=== PATIENT | male | born 1985 | race African-American/Black ===

== ENCOUNTER 2025-03-03 12:12 | Inpatient (IN) | payer OTHER, MEDICAID ==
[~2025-03-03] VITALS: Ht 167.6 cm; Wt 84.0 kg
[2025-03-03] MEDS: NOREPINEPHRINE 8 MG/250ML KIT 250 ML IV SCH (07:00)
--- NOTE | 2025-03-03 12:37 | ED.PDOC ---
Altered Mental Status HPI Comments 39 year old male presents to the ED with a chief complaint of ALOC onset today (03/03/25). Patient states he woke up today experiencing tremors, worse than usual. Patient drinks ETOH daily, last drink was 4 days ago. Sister states patient has been experiencing hallucinations the past 2 days. Denies chest pain, shortness of breath, nausea, vomiting, diarrhea,headache, dizziness. No other symptoms or modifying factors present at this time. Chief Complaint: Withdrawal Time Seen by MD: 12:30 Reviewed Notes: Medications, Allergies Information Source: Patient, Relative Mode of Arrival: Ambulatory Severity: Moderate Timing: Hours Duration: Since onset Prehospital treatment: None Quality: Change in Behavior Recent: Other History of: None Past Medical History PAST MEDICAL HISTORY: Denies Surgical History: Denies all surgeries Family History Family History: Reviewed,noncontributory to illness, No family hx of Cancer, No family hx of DM, No family hx of Heart alva, No family hx of HTN, No family hx ofKidney alva, No family hx of Liver alva, No family hx of Lung alva, No family hx of Stroke Social History Smoker: Non-Smoker Alcohol: Heavy Drugs: Denies Drug Use Lives In: Home Constitutional: reports: sweats; denies: chills, diaphoresis, fatigue, fever, malaise, weakness, others EENTM: denies: blurred vision, double vision, ear bleeding, ear discharge, ear drainage, ear pain, ear ringing, eye pain, eye redness, hearing loss, mouth pain, mouth swelling, nasal discharge, nose bleeding, nose congestion, nose pain, photophobia, tearing, throat pain, throat swelling, voice changes, others Respiratory: denies: cough, hemoptysis, orthopnea, SOB at rest, shortness of breath, SOB with excertion, stridor, wheezing, others Cardiovascular: denies: chest pain, dizzy spells, diaphoresis, Dyspnea on exertion, edema, irregular heart beat, left arm pain, lightheadedness, palpitations, PND, syncope, others Gastrointestinal: denies: abdomen distended, abdominal pain, blood streaked bowels, constipated, diarrhea, dysphagia, difficulty swallowing, hematemesis, melena, nausea, poor appetite, poor fluid intake, rectal bleeding, rectal pain, vomiting, others Genitourinary: denies: burning, dysuria, flank pain, frequency, hematuria, incontinence, penile discharge, penile sore, pain, testicle pain, testicle swelling, urgency, others Neurological: reports: tremors; denies: dizziness, fainting, headache, left sided numbness, left sided weakness, numbness, paresthesia, pre-existing deficit, right sided numbness, right sided weakness, seizure, speech problems, tingling, weakness, others Musculoskeletal: denies: back pain, gout, joint pain, joint swelling, muscle pain, muscle stiffness, neck pain, others Integumetry: denies: bruises, change in color, change in hair/nails, dryness, laceration, lesions, lumps, rash, wounds, others Allergic/Immunocompromised: denies: Difficulty Healing, Frequent Infections, Hives, Itching, others Hematologic/Lymphatic: denies: anemia, blood clots, easy bleeding, easy bruising, swollen glands, others Endocrine: denies: excessive hunger, excessive sweating, excessive thirst, excessive urination, flushing, intolerance to cold, intolerance to heat, unexplained weight gain, unexplained weight loss, others Psychiatric: reports: others (hallucinations); denies: anxiety, bipolar disorder, depression, hopeless, panic disorder, schizophrenia, sleepless, suicidal All Other Systems: Reviewed and Negative Physical Exam General Appearance: Moderate Distress HEENT: Normal ENT Inspection, Pharynx Normal, TMs Normal Neck: Full Range of Motion, Non-Tender, Normal, Normal Inspection Respiratory: Chest Non-Tender, Lungs Clear, No Accessory Muscle Use, No Respiratory Distress, Normal Breath Sounds Cardiovascular: No Edema, No JVD, No Murmur, No Gallop, Normal Peripheral Pulses, Regular Rate/Rhythm Breast Exam: Deferred Gastrointestinal: No Organomegaly, Non Tender, No Pulsatile Mass, Normal Bowel Sounds, Soft Genitalia: Deferred Pelvic: Deferred Rectal: Deferred Extremities: No calf tenderness, Normal capillary refill, Normal inspection, Normal range of motion, Non-tender, No pedal edema Musculoskeletal : Apperance: Normal Neurologic: Disoriented, Speech Problem, Other Cerebellar Function: Tremor, Ataxia Reflexes: Normal Skin: Dry, Normal Color, Warm Lymphatic: No Adenopathy Was a procedure done? Was a procedure done?: Yes Sedation Sedation?: No Sedation total time: Central Line Recorder of insertion practice: Associate Financial Planner Occupation of co founder and cto: Attending Physician Indication: Hypotension Room prepared for procedure: Yes Associate Financial Planner performed hand hygien: Yes Maximal sterile barrier precau: Mask/Eye shield, Sterile gown, Cap, Sterlie gloves, Large sterlie drape Skin Preparation: Chlorhexidine gluconate, Providine iodine, Alcohol Skin preparation completely dr: Yes Insertion site: Right, Femoral Central line catheter type: [id number] dialysis Number of lumens: 3 Post Assessment: Chest X-Ray, Proper placement Informed consent obtained: Yes Risks/benefits/alt described: Yes Intubation Indication: Altered Mental Status, Airway Protection Prep: Preoxygenation Pretreated with: Sedation Medicated with: Other (versed 20 mg, Rocuronium 100 mg) Intubation Approach: Orotracheal Intubation size: cm (24) Informed consent obtained: Yes Risks/benefits/alt described: Yes Differential Diagnosis (ALOC) Differential Diagnosis: Encephalopathy, Closed Head Injury, CVA, Other (Alcohol withdrawal) X-Ray, Labs, Meds, VS Vital Signs Date Time Temp Pulse Resp B/P (MAP) Pulse Ox O2 Delivery O2 Flow Rate FiO2 03/03/25 16:30 98 18 117/73 (88) 99 03/03/25 16:24 98 18 104/65 (78) 99 30 03/03/25 16:15 98 18 112/72 (85) 99 03/03/25 16:00 105 18 104/65 (78) 98 03/03/25 15:45 105 18 103/55 (71) 98 03/03/25 15:36 98.2 130 20 140/101 100 50 98.2 03/03/25 15:30 128 19 113/76 (88) 98 03/03/25 15:28 121 18 188/148 (161) 100 50 03/03/25 15:15 111 19 129/62 (84) 100 03/03/25 15:00 125 22 188/148 (161) 99 03/03/25 14:00 130 20 140/101 (114) 100 03/03/25 12:52 Room Air* 0 21 03/03/25 12:51 98.2 129 19 172/96 (121) 100 98.2 03/03/25 12:31 98.2 142 20 100 98.2 Lab Test 03/03/25 16:04 03/03/25 16:00 03/03/25 12:37 03/03/25 12:26 Range/Units Blood Gas Specimen Type Arterial Blood Gas Sample Site Right radial Blood Gas Patient Temperature 37.0 Arterial Blood Date Drawn [id number] Arterial Blood pH 7.410 7.350-7.450 Arterial Blood Partial Pressure CO2 33.0 L 35.0-48.0 mmHg Arterial Blood Partial Pressure O2 172.0 H 83.0-108.0 mmHg Arterial Blood HCO3 20.4 L 21.0-28.0 mmol/L Arterial Blood Oxygen Saturation 99.2 H 94.0-98.0 % Arterial Blood Base Excess -3.3 L -2.0-3.0 mmol/L Arterial Blood Oxyhemoglobin 97.7 94.0-98.0 % Arterial Blood Carboxyhemoglobin 0.8 0.5-1.5 % Arterial Blood Methemoglobin 0.7 0.0-1.5 % Matt Test Modified Blood Gas Total Hemoglobin 14.00 13.5-17.5 g/dL Blood Gas Set Respiration Rate 18.0 Blood Gas Modality Vent - ac FiO2 % 50.0 Blood Gas Tidal Volume 500.0 Blood Gas PEEP or CPAP 5.0 Urine Color Light-orange Yellow Urine Clarity Clear Clear Urine pH 6.0 5.0-9.0 Urine Specific Gunter 1.033 1.001-1.035 Urine Protein 1+ H Negative Urine Ketones 2+ H Negative Urine Blood Trace H Negative /uL Urine Nitrite Negative Negative Urine Bilirubin 1+ Negative Urine Urobilinogen 4 H Negative mg/dL Urine Leukocyte Esterase Negative Negative /uL Urine RBC 1 0 - 3 /hpf Urine Microscopic WBC 1 0-3 /HPF Urine Squamous Epithelial Cells None seen <5 /hpf Urine Bacteria None seen None Seen /hpf Urine Hyaline Casts Few 0 - 2 /lpf Urine Mucus Few None Seen Urine Glucose Normal Normal mg/dL White Blood Count 12.7 H 4.4-10.8 10^3/uL Red Blood Count 4.93 4.5-5.90 10^6/uL Hemoglobin 16.2 13.5-17.5 g/dL Hematocrit 46.5 41.0-53.0 % Mean Corpuscular Volume 94.4 80.0-100.0 fL Mean Corpuscular Hemoglobin 32.8 H 28.0-32.0 pg Mean Corpuscular Hemoglobin Concent 34.7 32.0-36.0 g/dL Red Cell Distribution Width 12.8 11.8-14.3 % Platelet Count 207 140-450 10^3/uL Mean Platelet Volume 7.8 6.9-10.8 fL Neutrophils (%) (Auto) 58.6 37.0-80.0 % Lymphocytes (%) (Auto) 23.5 10.0-50.0 % Monocytes (%) (Auto) 16.1 H 0.0-12.0 % Eosinophils (%) (Auto) 0.8 0.0-7.0 % Basophils (%) (Auto) 1.0 0.0-2.0 % Neutrophils # (Auto) 7.4 1.6-8.6 10 ^3/uL Lymphocytes # (Auto) 3.0 0.4-5.4 10 ^3/uL Monocytes # (Auto) 2.0 H 0-1.3 10 ^3/uL Eosinophils # (Auto) 0.1 0-0.8 10 ^3/uL Basophils # (Auto) 0.1 0-0.2 10 ^3/uL Nucleated Red Blood Cells 1.1 % Sodium Level 136 136-145 mmol/L Potassium Level 4.1 3.5-5.1 mmol/L Chloride Level 95 L 98-107 mmol/L Carbon Dioxide Level 26 20-31 mmol/L Anion Gap 15 5-15 Blood Urea Nitrogen 11 9-23 mg/dL Creatinine 1.25 0.700-1.30 mg/dL Glomerular Filtration Rate Calc 76 >90 mL/min BUN/Creatinine Ratio 8.8 L 10.0-20.0 Serum Glucose 121 H 74-106 mg/dL Calcium Level 10.7 H 8.7-10.4 mg/dL Total Bilirubin 1.5 H 0.2-1.0 mg/dL Aspartate Amino Transferase (AST) 87 H 13-40 U/L Alanine Aminotransferase (ALT) 63 H 7-40 U/L Alkaline Phosphatase 53 46-116 U/L Troponin I High Sensitivity 13 </=54 ng/L Total Protein 8.7 H 5.7-8.2 g/dL Albumin 5.6 H 3.2-4.8 g/dL Plasma/Serum Blood Alcohol < 3.0 <10 mg/dL POC Glucose 124 H 70-106 mg/dl Current Medications Medications (Trade) Dose Ordered Sig/Sherman Route Start Time Stop Time Status Last Admin Sodium Chloride 1,000 ml @ 1,000 mls/hr Q1H ONCE IV 03/03/25 12:45 03/03/25 13:44 DC 03/03/25 12:44 Famotidine (Pepcid Injection) 20 mg ONCE ONCE IV 03/03/25 12:45 03/03/25 12:46 DC 03/03/25 12:44 Lorazepam (Ativan Inj) 2 mg ONCE ONCE IV 03/03/25 12:45 03/03/25 12:46 DC 03/03/25 12:44 Chlordiazepoxide HCl (Librium Capsule) 50 mg ONCE ONCE PO 03/03/25 12:45 03/03/25 12:46 DC 03/03/25 12:44 Folic Acid 1 mg/ Dextrose 50.2 ml @ 200.8 mls/ hr ONCE ONCE INJ 03/03/25 12:45 03/03/25 12:59 DC 03/03/25 13:22 Thiamine HCl 100 mg ONCE ONCE IV 03/03/25 12:45 03/03/25 12:46 DC 03/03/25 12:44 Lorazepam (Ativan Inj) 2 mg ONCE ONCE IV 03/03/25 14:45 03/03/25 14:46 DC 03/03/25 14:37 Time of 1ST Reevaluation: 13:00 Reevaluation 1ST: Unchanged Patient Education/Counseling: Diagnosis, Treatment, Prognosis Family Education/Counseling: Diagnosis, Treatment, Prognosis Additional Information The following tests were ordered, and results were reviewed by me: CBC, CMP, BLOOD ALCOHOL, TROP, UA, Additional Information was gathered from interviewing the following independent historians: sister I discussed treatment and results with medical personnel and: patient, sister Comprehensive systems review obtained and negative except for what is stated in the HPI. Departure 1 Departure Time of Disposition: 17:34 (Patient presented with a acute alcohol withdrawal. The patient when severe withdrawal not tolerating secretions. Patient was intubated started on propofol drip. We will admit patient to ICU for further workup) Impression: Primary Impression: ALCOHOL ABUSE WITH WITHDRAWAL DELIRIUM Disposition: ADMITTED INPATIENT Admit to: ICU Condition: Critical Critical Care Note Critical Care Time?: Yes Critical care comment: Severe alcohol withdrawal Authorized and Performed by: Camilla Gonzalez MD Total critical care time: Approximately 118 minutes Due to a high probability of clinically significant, life threatening deterioration, the patient required my highest level of preparedness to intervene emergently and I personally spent this critical care time directly and personally managing the patient. This critical care time included obtaining a history; examining the patient; pulse oximetry; ordering and review of studies; arranging urgent treatment with development of a management plan; evaluation of patient's response to treatment; frequent reassessment; and, discussions with other providers. This critical care time was performed to assess and manage the high probability of imminent, life-threatening deterioration that could result in multi-organ failure. It was exclusive of separately billable procedures and treating other patients and teaching time. Please see my other sections and the rest of the note for further information on patient assessment and treatment. Stability Stability form required: No I personally scribed for CAMILLA GONZALEZ MD ([email or web address]) on 03/03/25 at 12:37. Electronically submitted by Allison Mackay ([email or web address]). I personally scribed for CAMILLA GONZALEZ MD ([email or web address]) on 03/03/25 at 13:04. Electronically submitted by Allison Mackay ([email or web address]). I personally scribed for CAMILLA GONZALEZ MD ([email or web address]) on 03/03/25 at 13:05. Electronically submitted by Allison Mackay ([email or web address]). I personally scribed for CAMILLA GONZALEZ MD ([email or web address]) on 03/03/25 at 15:49. Electronically submitted by Allison Mackay ([email or web address]). CAMILLA GONZALEZ MD March 03, 2025 12:37
[2025-03-03] MEDS: LORazepam 2MG/ML-1ML VIAL IV ONE ×3 (12:44→18:00)
[2025-03-03] MEDS: FAMOTIDINE (10MG/ML) 2ML VL IV ONE (12:44)
[2025-03-03] MEDS: SODIUM CHLORIDE 0.9% 1,000 ML IV ONE (12:44)
[2025-03-03] MEDS: chlordiazePOXIDE HCL 25 MG CAP PO ONE (12:44)
[2025-03-03] MEDS: THIAMINE 100mg/ml INJ (200mg/2ml VIAL) IV ONE (12:44)
[2025-03-03 12:52] LABS: Basophils # (auto) 0.1 10 ^3/uL (0-0.2); Eosinophils # (auto) 0.1 10 ^3/uL (0-0.8); Eosinophils % (auto) 0.8 % (0.0-7.0); Hematocrit 46.5 % (41.0-53.0); Hemoglobin 16.2 g/dL (13.5-17.5); Lymphocytes % (auto) 23.5 % (10.0-50.0); Mean Corpuscular Hemoglobin 32.8 pg (28.0-32.0); Mean Corpuscular Hgb Conc. 34.7 g/dL (32.0-36.0); Mean Corpuscular Volume 94.4 fL (80.0-100.0); Monocytes % (auto) 16.1 % (0.0-12.0); Neutrophils # (auto) 7.4 10 ^3/uL (1.6-8.6); Neutrophils % (auto) 58.6 % (37.0-80.0); Nucleated Red Blood Cells % 1.1 %; Platelet Count (auto) 207 10^3/uL (140-450); Red Blood Cells 4.93 10^6/uL (4.5-5.90); Red Cell Distribution Width 12.8 % (11.8-14.3); White Blood Cell 12.7 10^3/uL (4.4-10.8)
[2025-03-03 13:12] LABS: Alkaline Phosphatase 53 U/L (46-116); Carbon Dioxide 26 mmol/L (20-31); Potassium 4.1 mmol/L (3.5-5.1)
[2025-03-03 13:13] LABS: Anion Gap 15 (5-15); BUN/Creatinine Ratio 8.8 (10.0-20.0); Blood Urea Nitrogen 11 mg/dL (9-23)
[2025-03-03 13:14] LABS: Alanine Aminotransferase 63 U/L (7-40); Albumin 5.6 g/dL (3.2-4.8); Aspartate Aminotransferase 87 U/L (13-40); Bilirubin, Total 1.5 mg/dL (0.2-1.0); Calcium 10.7 mg/dL (8.7-10.4); Chloride 95 mmol/L (98-107); Glucose 121 mg/dL (74-106); Sodium 136 mmol/L (136-145); Total Protein 8.7 g/dL (5.7-8.2)
[2025-03-03] MEDS: FOLIC ACID 1 MG in D5W 5% 50 ML INJ ONE (13:22)
[2025-03-03 13:34] LABS: Blood Alcohol < 3.0 mg/dL (<10)
[2025-03-03] MEDS: LORazepam 2MG/ML-1ML VIAL ONE (14:37)
[2025-03-03] MEDS: MIDAZOLAM HCL 5 MG/ML-1ML VIAL ONE ×2 (14:51→15:33)
[2025-03-03] MEDS: PROPOFOL 100 ML IV SCH (15:00)
[2025-03-03] MEDS: MIDAZOLAM DRIP 50 mg/50mL 50 ML IV SCH (15:00)
[2025-03-03] MEDS: MIDAZOLAM DRIP 50 mg/50mL 50 ML IV ONE (15:33)
[2025-03-03] MEDS: PROPOFOL 100 ML IV ONE ×2 (15:33→18:15)
[2025-03-03] MEDS: ROCURONIUM 10MG/ML 10ML VIAL IV ONE (15:34)
[2025-03-03 15:36] VITALS: BP 140/101; PULSE 130; RESP 20; TEMP 98.2; O2SAT 100
[2025-03-03 16:04] LABS: Urine Bacteria None Seen /hpf (None Seen)
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
[2025-03-03 16:13] LABS: Base Excess -3.3 mmol/L (-2.0-3.0)
[2025-03-03 16:16] LABS: Urine Blood TRACE /uL (Negative); Urine Clarity Clear (Clear); Urine Color Light-Orange (Yellow); Urine Hyaline Cast FEW /lpf (0 - 2); Urine Mucus FEW (None Seen); Urine Protein, UAD 1+ (Negative); Urine Specific Gravity 1.033 (1.001-1.035); Urine Squamous Epithelial Cell None Seen /hpf (<5); Urine Urobilinogen 4 mg/dL (Negative); Urine WBC 1 /HPF (0-3)
[2025-03-03 16:24] VITALS: BP 104/65; PULSE 98; RESP 18; O2SAT 99
[2025-03-03] MEDS ORDERED: PROPOFOL 100 ML IV SCH (17:00)
[2025-03-03] MEDS ORDERED: MORPHINE SULFATE INJ 2 MG/ml SYRG IV PRN (17:00)
[2025-03-03] MEDS ORDERED: NITROGLYCERIN 0.4 MG SL TAB SL PRN (17:00)
[2025-03-03] MEDS ORDERED: MIDAZOLAM DRIP 50 mg/50mL 50 ML IV SCH (17:00)
[2025-03-03] MEDS ORDERED: ONDANSETRON HCL 4 MG/2 ML VIAL IV PRN (17:00)
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
[2025-03-03 18:14] VITALS: PULSE 107; RESP 25; O2SAT 97
[2025-03-03 20:10] VITALS: BP 102/64; PULSE 100; RESP 23; O2SAT 99
[2025-03-03] MEDS: fentaNYL Drip 2500mCg/250mlNS 250 ML IV SCH (20:15)
[2025-03-03 20:16] VITALS: PULSE 50; O2SAT 100
[2025-03-03] MEDS: FOLIC ACID 1 MG, MULTIPLE VITAMIN 10 ML, MAGNESIUM SULF SDV 50% 8 MEQ, THIAMINE INJ 100... INJ SCH (21:21)
[2025-03-03 22:04] VITALS: BP 97/57; PULSE 92; RESP 18; O2SAT 98
[2025-03-04] VITALS (94 sets, daily range): BP systolic 82–151; BP diastolic 51–95; PULSE 64–98; RESP 15–23; TEMP 96.6–100.6; O2SAT 97–100
[2025-03-04] MEDS: chlordiazePOXIDE HCL 25 MG CAP PO SCH (02:40)
--- NOTE | 2025-03-04 07:24 | DVH ---
EXAM: XR Chest, 1 View CLINICAL INDICATION: Intubated TECHNIQUE: Frontal view of the chest. COMPARISON: XY CHEST PORTABLE on DOS: 03/03/25 FINDINGS: LUNGS AND PLEURAL SPACES: Unremarkable. No consolidation. No pneumothorax. HEART: Unremarkable. No cardiomegaly. MEDIASTINUM: Unremarkable. Normal mediastinal contour. BONES/JOINTS: Unremarkable. No acute fracture. TUBES, LINES AND DEVICES: The endotracheal tube (ETT) is in satisfactory position. Enteric tube ti p in the stomach. OTHER FINDINGS: . . IMPRESSION: No acute cardiopulmonary process.
[2025-03-04 07:27] LABS: Basophils # (auto) 0.1 10 ^3/uL (0-0.2); Basophils % (auto) 0.8 % (0.0-2.0); Eosinophils # (auto) 0.1 10 ^3/uL (0-0.8); Eosinophils % (auto) 1.3 % (0.0-7.0); Hematocrit 38.2 % (41.0-53.0); Hemoglobin 13.4 g/dL (13.5-17.5); Lymphocytes # (auto) 0.8 10 ^3/uL (0.4-5.4); Lymphocytes % (auto) 10.2 % (10.0-50.0); Mean Corpuscular Hemoglobin 32.9 pg (28.0-32.0); Mean Corpuscular Hgb Conc. 35.1 g/dL (32.0-36.0); Monocytes # (auto) 0.9 10 ^3/uL (0-1.3); Monocytes % (auto) 11.7 % (0.0-12.0); Neutrophils # (auto) 5.7 10 ^3/uL (1.6-8.6); Platelet Count (auto) 163 10^3/uL (140-450); Red Blood Cells 4.06 10^6/uL (4.5-5.90); Red Cell Distribution Width 13.1 % (11.8-14.3); White Blood Cell 7.5 10^3/uL (4.4-10.8)
[2025-03-04 07:41] LABS: Albumin 4.3 g/dL (3.2-4.8); Anion Gap 11 (5-15); BUN/Creatinine Ratio 7.2 (10.0-20.0); Calcium 9.6 mg/dL (8.7-10.4); Carbon Dioxide 26 mmol/L (20-31); Chloride 100 mmol/L (98-107); Glucose 102 mg/dL (74-106); Sodium 137 mmol/L (136-145); Total Protein 6.8 g/dL (5.7-8.2)
[2025-03-04 07:42] LABS: Alanine Aminotransferase 44 U/L (7-40); Alkaline Phosphatase 40 U/L (46-116); Aspartate Aminotransferase 44 U/L (13-40); Bilirubin, Total 1.1 mg/dL (0.2-1.0); Blood Urea Nitrogen 6 mg/dL (9-23); Potassium 2.7 mmol/L (3.5-5.1)
[2025-03-04 07:47] LABS: Base Excess -0.6 mmol/L (-2.0-3.0)
[2025-03-04 09:25] LABS: Magnesium 2.3 mg/dL (1.6-2.6)
[2025-03-04] MEDS ORDERED: chlordiazePOXIDE HCL 25 MG CAP PO SCH (10:00)
[2025-03-04] MEDS: PANTOPRAZOLE 40 MG/10 ML VIAL INJ IV SCH (10:12)
[2025-03-04] MEDS: POTASSIUM CHL 20MEQ/100ML 100 ML IV SCH ×2 (10:12→14:18)
[2025-03-04] MEDS: ENOXAPARIN SOD 40 MG/0.4 ML SYRINGE SC SCH (10:15)
[2025-03-04] MEDS: LORazepam 2MG/ML-1ML VIAL IV PRN (10:24)
[2025-03-04] MEDS: LORazepam 2MG/ML-1ML VIAL ONE (10:28)
[2025-03-04] MEDS: LORazepam 2MG/ML-1ML VIAL IV ONE (10:30)
[2025-03-04 11:34] LABS: Folate (Folic Acid) 23.84 ng/mL (>5.38)
[2025-03-04] MEDS: ACETAMINOPHEN 500 MG TAB or CAP PO PRN (12:18)
[2025-03-04] MEDS: LACTATED RINGER'S 1,000 ML IV ONE (14:58)
[2025-03-04] MEDS: SODIUM CHLORIDE 0.9% 1,000 ML IV SCH (15:55)
[2025-03-04] MEDS: Jevity 1.2 Cal/Fiber 1 Liter GT SCH (16:04)
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
--- NOTE | 2025-03-04 22:04 | BSKYNEURO ---
[facility] Note # Demographics Consult Type: General Neurology Patient Location: Inpatient First Name: ANA MARÍA PALMA Last Name: KADEN Date of : 1985 Age: 39 Gender: Male Facility: [facility] Time of Initial Page (Traill Time): 03/04/2025 21:38 Time of Return Call (Traill Time): 03/04/2025 21:38 # HPI History: 39M reportedly with seizures in setting of alcohol withdrawal. Intubated. Ativan does not seem to do much for him to suppress seizures. Shaking whole body during events, duration of events about 7 minutes per RN, some shorter. Versed 15mg/hr, propofol at 50mcg/kg/min, fentanyl sedation ongoing. CT ordered, pending, EEG ordered, pending. # Exam Additional Neurologic Exam: intubated, sedated. Neck supple per RN. No ability for patient to participate in examination. No ongoing seizure-like activity. # Assessment Impression: - Seizure - Altered Mental Status in setting of alcohol withdrawal. # Plan Imaging: (urgency: STAT): - CT Head without contrast Other: - If patient has any neurological deterioration please call me back immediately - I have discussed my recommendations with the referring provider Additional Recommendations: STAT cEEG, if transfer required, would initiate. In meantime continue versed, propofol, would add keppra 60mg/kg IV once up to maximum of 4.5g once, then 1.5g IV BID. Disposition: admit # Logistics Attestation of consult completion: The patient is located at: [facility]. Facility staff participated in the visit. I performed this telemedicine visit from my offsite office utilizing interactive 2 way audio and visual telecommunication technology. Consent: Verbal consent was obtained from the patient and/or family for this encounter. Total time spent in telemedicine encounter: I spent 20 minutes reviewing clinical data and/or imaging, obtaining history, examining the patient, communicating with the onsite care team, and in preparation of this report. # Demographics First Name: ANA MARÍA PALMA Last Name: KADEN Facility: [facility] Yes KRISTIE WALSH MD March 04, 2025 22:04
--- NOTE | 2025-03-04 22:47 | DVH ---
INDICATION: Alcohol abuse, evaluate hepatic structure TECHNIQUE: Multiple real-time sonographic images of the abdomen were obtained. COMPARISON: None FINDINGS: The liver is homogenous in echogenicity. The liver measures 14.4 cm. No intrahepatic bilia ry ductal dilatation is noted. The liver has mild grade 1 hepatic steatosis. The gallbladder wall measures 0.2 cm and is unremarkable. No gallstones or sludge is seen. The commo n duct measures 0.38 cm and is unremarkable. No pericholecystic fluid is noted. The right kidney measures 0.9 cm. No hydronephrosis. The left kidney measures 11.1 cm. No hydroneph rosis. The spleen measures 9.4 cm, within normal limits. The echogenicity is within normal limits. The pancreas is not well visualized due to obscuration from bowel gas. The visualized portions of the IVC and aorta are grossly unremarkable. IMPRESSION: 1. Normal exam of the abdomen.
[2025-03-04] MEDS: levETIRAcetam 1000 mg/100ml 100 ML IV ONE (23:46)
[2025-03-05] VITALS (109 sets, daily range): BP systolic 83–126; BP diastolic 51–88; PULSE 61–78; RESP 12–20; TEMP 97.9–100.4; O2SAT 97–100
[2025-03-05] MEDS ORDERED: levETIRAcetam 1000 mg/100ml 100 ML IV ONE
[2025-03-05] MEDS: levETIRAcetam 1000 mg/100ml 100 ML IV ONE ×3 (00:08→00:45)
[2025-03-05] MEDS: levETIRAcetam 500 mg/100ml 100 ML IV ONE (01:02)
--- NOTE | 2025-03-05 02:40 | DVH ---
EXAM: CT HEAD WITHOUT CONTRAST INDICATION: Seizure TECHNIQUE: CT of the head without intravenous contrast. Radiation Dose Information: CT Dose: CTDI volume is 62.87 mGy. Dose-length product is 1007.58 mGy*cm The dose indicators for CT are the volume Computed Tomography (CT) Dose Index (CTDIvol) and the Dose Length Product (DLP), and are measured in units of mGy and mGy-cm, respectively. These indicators are not patient dose, but values generated from the CT scanner acquisition factors. The report includes radiation exposure data for exposures received during this examination. COMPARISON: None FINDINGS: There is no evidence of acute intracranial hemorrhage, extra-axial collection, mass effect, midline s hift, herniation or hydrocephalus. The ventricles, sulci and cisterns are age appropriate. The temple-white differentiation is intact. The visualized paranasal sinuses and mastoid air cells are clear. The surrounding soft tissues and osseous structures are unremarkable. There is an endotracheal tube. IMPRESSION: 1. No acute intracranial abnormality.
[2025-03-05 03:50] LABS: Basophils # (auto) 0.1 10 ^3/uL (0-0.2); Basophils % (auto) 0.7 % (0.0-2.0); Eosinophils # (auto) 0.2 10 ^3/uL (0-0.8); Eosinophils % (auto) 2.6 % (0.0-7.0); Hematocrit 35.6 % (41.0-53.0); Hemoglobin 12.3 g/dL (13.5-17.5); Lymphocytes % (auto) 13.9 % (10.0-50.0); Mean Corpuscular Hgb Conc. 34.6 g/dL (32.0-36.0); Mean Corpuscular Volume 95.5 fL (80.0-100.0); Monocytes # (auto) 0.9 10 ^3/uL (0-1.3); Monocytes % (auto) 13.2 % (0.0-12.0); Neutrophils # (auto) 4.9 10 ^3/uL (1.6-8.6); Neutrophils % (auto) 69.6 % (37.0-80.0); Platelet Count (auto) 166 10^3/uL (140-450); Red Blood Cells 3.73 10^6/uL (4.5-5.90); Red Cell Distribution Width 12.7 % (11.8-14.3); White Blood Cell 7.1 10^3/uL (4.4-10.8)
[2025-03-05 03:53] LABS: Chloride 105 mmol/L (98-107); Sodium 139 mmol/L (136-145)
[2025-03-05 03:54] LABS: Anion Gap 10 (5-15); Carbon Dioxide 24 mmol/L (20-31)
[2025-03-05 03:57] LABS: Calcium 8.3 mg/dL (8.7-10.4); Potassium 2.9 mmol/L (3.5-5.1)
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
[2025-03-05 04:09] LABS: BUN/Creatinine Ratio 6.6 (10.0-20.0); Blood Urea Nitrogen < 5 mg/dL (9-23); Glucose 123 mg/dL (74-106)
[2025-03-05] MEDS: POTASSIUM CHL 20MEQ/100ML 100 ML IV SCH ×2 (04:22→20:12)
[2025-03-05 07:43] LABS: Base Excess -3.8 mmol/L (-2.0-3.0)
[2025-03-05] MEDS: levETIRAcetam 1500 mg/100ml 100 ML IV SCH (07:56)
[2025-03-05] MEDS ORDERED: chlordiazePOXIDE HCL 25 MG CAP PO SCH (10:00)
[2025-03-05 10:57] LABS: Hepatitis A Ab IgM Negative; Hepatitis B Core IgM Negative (Negative); Hepatitis B Surface Antigen Negative (Negative); Hepatitis C Antibody Negative (Negative)
--- NOTE | 2025-03-05 14:29 | DVHEEG2 ---
Neurology EEG Procedural Note Procedural Note Date of service: March 05, 2025 Diagnosis: Seizure. Patient status: Sedated. Conditions of recording: This is an 18 channel EEG recording following guidelines as per the 10/20 international classification. No activating procedure was performed Technical summary: The entire recording was degraded by abundant electrical and lead artifact, making any sort of interpretation impossible. We suggest that the study be repeated, if possible, to obtain a more optimal study. AUBRIE BLANC MD March 05, 2025 14:29
[2025-03-05] MEDS: SODIUM CHLORIDE 0.9% 1,000 ML IV SCH (17:06)
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
[2025-03-06] VITALS (112 sets, daily range): BP systolic 92–120; BP diastolic 58–80; PULSE 60–90; RESP 15–22; TEMP 97.7–99.7; O2SAT 100
[2025-03-06 04:45] LABS: Alanine Aminotransferase 27 U/L (7-40); Albumin 3.4 g/dL (3.2-4.8); Anion Gap 9 (5-15); Aspartate Aminotransferase 27 U/L (13-40); Bilirubin, Total 0.7 mg/dL (0.2-1.0); Carbon Dioxide 21 mmol/L (20-31); Glucose 105 mg/dL (74-106); Potassium 3.5 mmol/L (3.5-5.1); Sodium 138 mmol/L (136-145)
[2025-03-06 04:59] LABS: Alkaline Phosphatase 41 U/L (46-116); BUN/Creatinine Ratio 7.1 (10.0-20.0); Blood Urea Nitrogen < 5 mg/dL (9-23); Calcium 8.2 mg/dL (8.7-10.4); Chloride 108 mmol/L (98-107); Total Protein 5.6 g/dL (5.7-8.2)
[2025-03-06 05:02] LABS: INR 0.97 (0.9-1.15); Partial Thromboplastin Time 29.4 SEC (24.5-34.5); Prothrombin Time 10.3 sec (9.3-11.8)
[2025-03-06 05:08] LABS: Hematocrit 35.6 % (41.0-53.0); Hemoglobin 12.2 g/dL (13.5-17.5); Mean Corpuscular Hemoglobin 32.7 pg (28.0-32.0); Mean Corpuscular Hgb Conc. 34.4 g/dL (32.0-36.0); Mean Corpuscular Volume 95.2 fL (80.0-100.0); Platelet Count (auto) 185 10^3/uL (140-450); Red Blood Cells 3.73 10^6/uL (4.5-5.90); Red Cell Distribution Width 12.7 % (11.8-14.3)
[2025-03-06 05:14] LABS: Basophils % (manual) 0 (0.0-2.0); Blast Cells 0; Metamyelocytes % 0; Myelocytes % 0; Promyelocytes % 0; Reactive Lymphocytes 0
--- NOTE | 2025-03-06 06:25 | DVH ---
CHEST RADIOGRAPH Indication: Mechanical ventilation Technique: Single frontal view of the chest was obtained Comparison: XY CHEST PORTABLE on DOS: 03/05/25 FINDINGS: Lines and Tubes: Endotracheal tube terminates 3.8 cm above the minna. The enteric tube courses below the left hemidiaphragm and the tip extends outside the field of view. Lungs: Hazy bilateral opacities. Pleura: No effusion. No pneumothorax. Cardiomediastinal contours: Unremarkable Bones: No acute osseous abnormality. IMPRESSION: 1. Endotracheal tube terminates 3.8 cm above the minna. 2. Mild pulmonary edema.
[2025-03-06 06:34] LABS: Band Neutrophils % (manual) 6; Eosinophils % (manual) 5 (0-7); Lymphocytes % (manual) 20 (10.0-50.0); Monocytes % (manual) 8 (0-12); Platelet Estimate Adequate
[2025-03-06] MEDS ORDERED: chlordiazePOXIDE HCL 25 MG CAP PO SCH (07:00)
[2025-03-06 09:10] LABS: Base Excess -3.8 mmol/L (-2.0-3.0)
[2025-03-06] MEDS: LIDOCAINE 1% (LOCAL ANESTH.) PF 5ml SDV ID ONE (12:33)
--- NOTE | 2025-03-06 14:08 | DVHEEG2 ---
Neurology EEG Procedural Note Procedural Note Diagnosis: Seizure. Patient status: Sedated. Conditions of recording: This is an 18 channel EEG recording following guidelines as per the 10/20 international classification. No activating procedure was performed Technical summary: The predominant activity throughout the entirety of the recording appeared to be diffuse low amplitude, low frequency poorly reactive slow symmetrical theta and delta activity,. No definite epileptiform discharges or electrographic seizures were seen. Impression: This is an abnormal EEG recording consistent with the presence of a severe diffuse nonspecific encephalopathic state and/or state of deep sedation. Clinical correlation is suggested. AUBRIE BLANC MD March 06, 2025 14:08
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
[2025-03-06] MEDS: SODIUM CHLOR 0.9% PF (SALINE LOCK) 10ML VIAL/SYR IV SCH (22:00)
[2025-03-07] VITALS (106 sets, daily range): BP systolic 85–131; BP diastolic 48–92; PULSE 63–100; RESP 14–20; TEMP 98.6–100.6; O2SAT 96–100
[2025-03-07 04:00] LABS: Anion Gap 10 (5-15); Carbon Dioxide 22 mmol/L (20-31); Chloride 105 mmol/L (98-107); Sodium 137 mmol/L (136-145)
[2025-03-07 04:02] LABS: Hematocrit 38.2 % (41.0-53.0); Hemoglobin 13.3 g/dL (13.5-17.5); Mean Corpuscular Hemoglobin 33.1 pg (28.0-32.0); Mean Corpuscular Hgb Conc. 34.9 g/dL (32.0-36.0); Mean Corpuscular Volume 94.8 fL (80.0-100.0); Platelet Count (auto) 244 10^3/uL (140-450); Red Blood Cells 4.03 10^6/uL (4.5-5.90); Red Cell Distribution Width 12.8 % (11.8-14.3); White Blood Cell 5.3 10^3/uL (4.4-10.8)
[2025-03-07 04:16] LABS: BUN/Creatinine Ratio 8.8 (10.0-20.0); Blood Urea Nitrogen < 5 mg/dL (9-23); Calcium 8.3 mg/dL (8.7-10.4); Glucose 127 mg/dL (74-106); Potassium 3.2 mmol/L (3.5-5.1)
[2025-03-07 04:46] LABS: Basophils % (manual) 0 (0.0-2.0); Metamyelocytes % 0; Myelocytes % 0; Promyelocytes % 0
[2025-03-07] MEDS: POTASSIUM CHL 20MEQ/100ML 100 ML IV SCH (05:40)
--- NOTE | 2025-03-07 05:55 | DVH ---
Exam: US US GUIDED VASCULAR ACCESS Date: 03/05/2025 01:04 PM Clinical History: PICC LINE PLACEMENT Comparison: None Findings: Targeted sonographic evaluation of the arm vein was obtained utilizing grayscale and color Doppler im aging. IMPRESSION: Sonographic assistance for picc placement. Please refer to procedural report for detailed findings.
--- NOTE | 2025-03-07 05:59 | DVH ---
EXAM: XR Chest, 1 View CLINICAL INDICATION: Mechanical ventilation TECHNIQUE: Frontal view of the chest. COMPARISON: XY CHEST PORTABLE on DOS: 03/06/25, XY CHEST PORTABLE on DOS: 03/05/25, XY CHEST PORTABLE on DOS: 03/04/25, XY CHEST PORTABLE on DOS: 03/03/25 FINDINGS: LUNGS AND PLEURAL SPACES: Mild pulmonary congestion. No consolidation. No pneumothorax. HEART: Unremarkable. No cardiomegaly. MEDIASTINUM: Unremarkable. Normal mediastinal contour. BONES/JOINTS: Unremarkable. No acute fracture. TUBES, LINES AND DEVICES: Right peripherally inserted central catheter (PICC) tip in the superior v geneva cava. The endotracheal tube (ETT) is in satisfactory position. Enteric tube tip in the stomach. OTHER FINDINGS: . . . IMPRESSION: Mild pulmonary congestion.
[2025-03-07 06:00] LABS: Band Neutrophils % (manual) 3; Blast Cells 1; Eosinophils % (manual) 3 (0-7); Lymphocytes % (manual) 11 (10.0-50.0); Monocytes % (manual) 23 (0-12); Platelet Estimate Adequate; Reactive Lymphocytes 3
[2025-03-07 07:15] LABS: Base Excess -2.6 mmol/L (-2.0-3.0)
[2025-03-07] MEDS: POTASSIUM CHL 20MEQ/100ML 100 ML IV ONE (11:27)
--- NOTE | 2025-03-07 12:25 | DVHSR ---
APPROVED REPORT EXAM: Two-dimensional and M-mode echocardiogram with Doppler and color Doppler. Blood Pressure: 98/65 mmHg INDICATION Mechanical ventilation RISK FACTORS Height: 5'6", Weight: 177 DIMENSIONS LVDd4.1 (3.8-5.7cm)LA (2D)3.6 (1.9-4.0cm)Aortic Root2.7 (2.0-3.7cm) LVDs3.2 (2.5-4.0cm)LA (MM) (1.9-4.0cm)Aortic Cusp Exc1.8 (1.5-2.0cm) EF (%) 46.0 (55-70%)Rt. Atrium3.7 (1.9-4.0cm)Asc. Aorta2.6 cm IVSd1.3 (0.7-1.1cm)RV (D)3.9 (1.8-2.4cm) PWd1.2 (0.7-1.1cm) Mitral Valve MitralMitral Stenosis E wave0.72m/sMV Mean GR.mmHg A wave0.58m/sMV Peak GR.mmHg E/A ratio1.22D MVAcm2 DECEL [id number] 1/2 Timems Aortic Valve Aortic ValveAortic Stenosis V10.89m/Alla Mean GR.3mmHg V21.08m/Alla Peak GR.5mmHg LVOT Diameter2.2 (1.8-2.4cm)Doppler AVA3.13cm2 Pulmonic Valve V20.81m/s Tricuspid Valve TR Velocity2.02m/s [id number] Conclusion Sinus rhythm. Concentric LVH with right ventricular involvement. Valves appear to be structurally normal. EF of 45-50% with normal RV function. Mild TR. Mild PI. No pericardial effusion masses or vegetations.
[2025-03-07] MEDS: NOREPINEPHRINE 8 MG/250ML KIT 250 ML IV SCH (13:30)
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
[2025-03-07] MEDS: ACETAMINOPHEN 650 mg PER 20.3 mL UD GT PRN (17:38)
[2025-03-07] MEDS: chlordiazePOXIDE HCL 25 MG CAP PO ONE (17:38)
[2025-03-07] MEDS: chlordiazePOXIDE HCL 25 MG CAP PO SCH (18:00)
[2025-03-07] MEDS: Vital AF 1.2 Cal 1 liter bottle GT SCH (20:54)
[2025-03-08] VITALS (109 sets, daily range): BP systolic 94–167; BP diastolic 53–121; PULSE 63–116; RESP 12–25; TEMP 95.2–100.4; O2SAT 100
[2025-03-08 04:01] LABS: Hemoglobin 14.2 g/dL (13.5-17.5); Mean Corpuscular Hemoglobin 32.5 pg (28.0-32.0); Mean Corpuscular Hgb Conc. 34.7 g/dL (32.0-36.0); Mean Corpuscular Volume 93.7 fL (80.0-100.0); Platelet Count (auto) 293 10^3/uL (140-450); Red Blood Cells 4.38 10^6/uL (4.5-5.90); Red Cell Distribution Width 13.1 % (11.8-14.3)
[2025-03-08 04:02] LABS: Chloride 103 mmol/L (98-107); Sodium 138 mmol/L (136-145)
[2025-03-08 04:03] LABS: Anion Gap 10 (5-15); Calcium 9.2 mg/dL (8.7-10.4); Carbon Dioxide 25 mmol/L (20-31)
[2025-03-08 04:06] LABS: Potassium 3.4 mmol/L (3.5-5.1)
[2025-03-08 04:07] LABS: Basophils % (manual) 0 (0.0-2.0); Metamyelocytes % 0; Myelocytes % 0; Promyelocytes % 0; Reactive Lymphocytes 0
[2025-03-08 04:08] LABS: BUN/Creatinine Ratio 8.3 (10.0-20.0); Blood Urea Nitrogen < 5 mg/dL (9-23); Glucose 156 mg/dL (74-106)
[2025-03-08] MEDS: DEXMEDETOMIDINE HCL IN D5W 100 ML IV SCH (04:52)
[2025-03-08 05:02] LABS: Band Neutrophils % (manual) 7; Blast Cells 1; Eosinophils % (manual) 2 (0-7); Lymphocytes % (manual) 23 (10.0-50.0); Monocytes % (manual) 17 (0-12)
[2025-03-08 05:03] LABS: Platelet Estimate Adequate
[2025-03-08] MEDS: POTASSIUM CHL 20MEQ/100ML 100 ML IV ONE (05:48)
--- NOTE | 2025-03-08 06:14 | DVH ---
EXAM: XY CHEST PORTABLE Indication: Mechanical ventilation Technique: Single frontal view of the chest was obtained Comparison: XY CHEST PORTABLE on DOS: 03/07/25, XY CHEST PORTABLE on DOS: 03/06/25, XY CHEST PORTABLE o n DOS: 03/05/25, XY CHEST PORTABLE on DOS: 03/04/25, XY CHEST PORTABLE on DOS: 03/03/25 FINDINGS: Lines and Tubes: Lines and tubes are unchanged. Lungs: Right basilar opacity. Pleura: No effusion. No pneumothorax. Cardiomediastinal contours: Unremarkable Bones: No acute osseous abnormality. IMPRESSION: No significant change compared to prior exam.
[2025-03-08 08:01] LABS: Base Excess -1.6 mmol/L (-2.0-3.0)
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
--- NOTE | 2025-03-08 17:40 | DVHPN2 ---
Progress Note - Dictate Date Seen: March 08, 2025 Medical Necessity Reason Pt with a Central, PICC or Fol: Yes The following are medically ne: Central Line, Hernandez Catheter vital signs Vital Sign Date Time Temp Pulse Resp B/P (MAP) Pulse Ox O2 Delivery O2 Flow Rate FiO2 03/08/25 16:07 78 18 116/72 (87) 100 30 03/08/25 15:49 99.5 03/08/25 14:00 Mechanical Ventilator+ Total Intake and Output 03/07/25 03/07/25 03/08/25 15:00 23:00 07:00 Intake Total 588.394 ml 1719.077 ml 850.521 ml Output Total 945 ml 2150 ml Balance 588.394 ml 774.077 ml -1299.479 ml medications Current Medications Medications Dose Ordered Sig/Sherman Route Start Time Stop Time Status Last Admin Dose Admin Folic Acid 1 mg/ Multivitamins 10 ml/Magnesium Sulfate 8 meq/ Thiamine HCl 100 mg/Dextrose 1,013.2 ml @ 125.001 mls/hr DAILY@1800 INJ 03/03/25 18:00 03/07/25 18:14 125.001 MLS/HR Ondansetron HCl 4 mg Q4HP PRN IV 03/03/25 17:00 Enoxaparin Sodium 40 mg DAILY SC 03/04/25 10:00 03/08/25 10:32 40 MG Propofol 100 ml @ 2.409 mls/ hr Q24H IV 03/03/25 19:45 03/07/25 21:15 9.636 MLS/HR Midazolam HCl 50 ml @ 1 mls/hr Q24H IV 03/03/25 19:45 03/08/25 04:41 2 MLS/HR Fentanyl Citrate 250 ml @ 2.5 mls/hr Q24H IV 03/03/25 20:15 03/07/25 12:46 10 MLS/HR Pantoprazole Sodium 40 mg DAILY IV 03/04/25 10:00 03/08/25 10:31 40 MG Lorazepam 1 mg Q5MINP PRN IV 03/04/25 11:00 03/04/25 22:17 1 MG Levetiracetam 100 ml @ 400 mls/hr BID IV 03/05/25 10:00 03/08/25 10:32 400 MLS/HR Sodium Chloride 10 ml QSHIFT@10,22 IV 03/06/25 22:00 03/08/25 10:31 10 ML Chlordiazepoxide HCl 25 mg Q6HR PO 03/07/25 18:00 03/08/25 11:42 25 MG Norepinephrine Bitartrate 250 ml @ 1.875 mls/ hr Q24H IV 03/07/25 13:30 03/07/25 13:30 1.875 MLS/HR Enteral Nutritional Formula 1,000 ml 50ML/HR GT 03/07/25 16:45 03/07/25 20:54 1,000 ML Acetaminophen 650 mg Q6HP PRN GT 03/07/25 17:30 03/08/25 13:25 650 MG laboratory and microbiology Laboratory Tests 03/08/25 03:04 Test 03/08/25 03:04 Range/Units Serum Glucose 156 H 74-106 mg/dL Assessment/Plan Impression Acute hypoxemic respiratory failure Acute COPD exacerbation Pneumonia Atelectasis Patient seen and examined in ICU Events On mechanical ventilation S/p intubation PEEP 5, FiO2 30% Off sedation, not waking up Labs and imaging reviewed ABG reviewed Management Vent support Titrate to maintain sats 90% or above When patient is more awake, proceed to weaning trial Pressure support 04/19, extubate when ready Okay to use Precedex drip Antibiotics Bronchodilators Monitor renal function Monitor electrolytes Supplement as needed Pressors as needed for hemodynamic support To maintain a mean arterial pressure of 65 mmHg Continue Librium for withdrawals DVT prophylaxis Critical care time 35 minutes Dietary Evaluation Review Comments: 1. On Vent, TF Vital @50ml/hr providing 105g protein, 1200kcal, supporting pt's need on vent protein needs @ 109%, energy needs @75% 2. Off vent,TF Vital A.F.@50ml/hr,(90g protein, 1440 kcal, 973 free water) meeting pt's protein needs 94%, energy needs 90%, 3.CCHO-60g Cardiac Diet when pt is off vent and passing a KETTLE OPERATOR eval. Expected Outcomes/Goals: Improved health and mental status. Able to receive counseling anf rehab. Plan discussed with: Other (Rn) DEBO MCINTOSH MD March 08, 2025 17:39
--- NOTE | 2025-03-08 22:46 | DVH ---
CHEST RADIOGRAPH Indication: ET Tube Placement Confirmation Technique: Single frontal view of the chest was obtained COMPARISON: XY CHEST PORTABLE on DOS: 03/08/25; 05:16 hrs FINDINGS / IMPRESSION: Lines and Tubes: ETT in satisfactory position with its tip approximately 3.5 cm above the minna. NG tube extends below the diaphragm though its tip is not visualized on this study. Right-sided PICC aga in noted with its tip projecting over cavoatrial junction. Lungs: Clear Pleura: No effusion. No pneumothorax. Cardiomediastinal contours: Unremarkable Metallic foreign bodies again noted overlying the chest.
[2025-03-09] VITALS (84 sets, daily range): BP systolic 94–185; BP diastolic 59–132; PULSE 63–173; RESP 13–53; TEMP 95.2–102.7; O2SAT 87–100
[2025-03-09 03:48] LABS: Chloride 104 mmol/L (98-107); Potassium 3.8 mmol/L (3.5-5.1); Sodium 142 mmol/L (136-145)
[2025-03-09 03:49] LABS: Anion Gap 9 (5-15); Calcium 9.3 mg/dL (8.7-10.4); Carbon Dioxide 29 mmol/L (20-31)
[2025-03-09 04:04] LABS: Hematocrit 37.8 % (41.0-53.0); Hemoglobin 13.1 g/dL (13.5-17.5); Mean Corpuscular Hemoglobin 32.5 pg (28.0-32.0); Mean Corpuscular Hgb Conc. 34.8 g/dL (32.0-36.0); Mean Corpuscular Volume 93.4 fL (80.0-100.0); Platelet Count (auto) 221 10^3/uL (140-450); Red Blood Cells 4.04 10^6/uL (4.5-5.90); Red Cell Distribution Width 13.1 % (11.8-14.3); White Blood Cell 7.4 10^3/uL (4.4-10.8)
[2025-03-09 04:11] LABS: Basophils % (manual) 0 (0.0-2.0); Blast Cells 0; Metamyelocytes % 0; Myelocytes % 0; Promyelocytes % 0; Reactive Lymphocytes 0
[2025-03-09 04:27] LABS: BUN/Creatinine Ratio 7.5 (10.0-20.0); Blood Urea Nitrogen < 5 mg/dL (9-23); Glucose 124 mg/dL (74-106)
[2025-03-09 06:06] LABS: Band Neutrophils % (manual) 33; Eosinophils % (manual) 2 (0-7); Lymphocytes % (manual) 21 (10.0-50.0); Monocytes % (manual) 16 (0-12)
[2025-03-09 06:07] LABS: Platelet Estimate Adequate
[2025-03-09] MEDS: LORazepam 2MG/ML-1ML VIAL IV ONE (06:30)
[2025-03-09 07:25] LABS: Base Excess -0.1 mmol/L (-2.0-3.0)
--- NOTE | 2025-03-09 10:01 | DVHPN2 ---
Progress Note - Dictate Date Seen: March 09, 2025 Medical Necessity Reason Pt with a Central, PICC or Fol: Yes The following are medically ne: Central Line, Hernandez Catheter vital signs Vital Sign Date Time Temp Pulse Resp B/P (MAP) Pulse Ox O2 Delivery O2 Flow Rate FiO2 03/09/25 07:30 98.1 73 18 128/86 (100) 100 208.6 03/09/25 06:00 30 03/09/25 06:00 Mechanical Ventilator+ Total Intake and Output 03/08/25 03/08/25 03/09/25 15:00 23:00 07:00 Intake Total 150.313 ml 959.6574 ml 722.708 ml Output Total 2900 ml 2100 ml Balance 150.313 ml -1940.3426 ml -1377.292 ml medications Current Medications Medications Dose Ordered Sig/Sherman Route Start Time Stop Time Status Last Admin Dose Admin Folic Acid 1 mg/ Multivitamins 10 ml/Magnesium Sulfate 8 meq/ Thiamine HCl 100 mg/Dextrose 1,013.2 ml @ 125.001 mls/hr DAILY@1800 INJ 03/03/25 18:00 03/08/25 18:18 125.001 MLS/HR Ondansetron HCl 4 mg Q4HP PRN IV 03/03/25 17:00 Enoxaparin Sodium 40 mg DAILY SC 03/04/25 10:00 03/08/25 10:32 40 MG Propofol 100 ml @ 2.409 mls/ hr Q24H IV 03/03/25 19:45 03/07/25 21:15 9.636 MLS/HR Midazolam HCl 50 ml @ 1 mls/hr Q24H IV 03/03/25 19:45 03/08/25 04:41 2 MLS/HR Fentanyl Citrate 250 ml @ 2.5 mls/hr Q24H IV 03/03/25 20:15 03/09/25 05:53 10 MLS/HR Pantoprazole Sodium 40 mg DAILY IV 03/04/25 10:00 03/08/25 10:31 40 MG Lorazepam 1 mg Q5MINP PRN IV 03/04/25 11:00 03/04/25 22:17 1 MG Levetiracetam 100 ml @ 400 mls/hr BID IV 03/05/25 10:00 03/08/25 22:08 400 MLS/HR Sodium Chloride 10 ml QSHIFT@10,22 IV 03/06/25 22:00 03/08/25 22:06 10 ML Chlordiazepoxide HCl 25 mg Q6HR PO 03/07/25 18:00 03/09/25 05:24 25 MG Norepinephrine Bitartrate 250 ml @ 1.875 mls/ hr Q24H IV 03/07/25 13:30 03/07/25 13:30 1.875 MLS/HR Enteral Nutritional Formula 1,000 ml 50ML/HR GT 03/07/25 16:45 03/07/25 20:54 1,000 ML Acetaminophen 650 mg Q6HP PRN GT 03/07/25 17:30 03/09/25 04:38 650 MG laboratory and microbiology Laboratory Tests 03/09/25 03:14 Test 03/09/25 03:14 Range/Units Serum Glucose 124 H 74-106 mg/dL Assessment/Plan Impression Acute hypoxemic respiratory failure Acute COPD exacerbation Pneumonia Atelectasis Patient seen and examined in ICU Events On mechanical ventilation S/p intubation PEEP 5, FiO2 30% Off sedation, beginning to wake up Labs and imaging reviewed ABG reviewed Management Vent support Titrate to maintain sats 90% or above When patient is more awake, proceed to weaning trial Pressure support 04/19, extubate when ready Okay to use Precedex drip Continue antibiotics F/u cultures Bronchodilators Monitor renal function Monitor electrolytes Supplement as needed Pressors as needed for hemodynamic support To maintain a mean arterial pressure of 65 mmHg Continue Librium for withdrawals DVT prophylaxis Critical care time 35 minutes Dietary Evaluation Review Comments: 1. On Vent, TF Vital @50ml/hr providing 105g protein, 1200kcal, supporting pt's need on vent protein needs @ 109%, energy needs @75% 2. Off vent,TF Vital A.F.@50ml/hr,(90g protein, 1440 kcal, 973 free water) meeting pt's protein needs 94%, energy needs 90%, 3.CCHO-60g Cardiac Diet when pt is off vent and passing a FISHING BOAT MATE eval. Expected Outcomes/Goals: Improved health and mental status. Able to receive counseling anf rehab. Plan discussed with: Other (Rn) DEBO MCINTOSH MD March 09, 2025 10:01
[2025-03-09 10:41] LABS: Base Excess 3.3 mmol/L (-2.0-3.0)
[2025-03-09] MEDS: ACETAMINOPHEN IV 1000 MG/100ML (10MG/ML) IV PRN (12:45)
[2025-03-09] MEDS: LORazepam 2MG/ML-1ML VIAL IV PRN (12:48)
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
[2025-03-09] MEDS: LORazepam MDV 2MG/ML 50 MG in SODIUM CHL 0.9% 25 ML IV SCH (16:35)
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
[2025-03-09] MEDS: cloNIDine HCL 0.1 MG TAB NG ONE (23:04)
[2025-03-10] VITALS (100 sets, daily range): BP systolic 106–165; BP diastolic 73–106; PULSE 77–113; RESP 15–53; TEMP 96.8–100; O2SAT 81–100
[2025-03-10 04:07] LABS: Hematocrit 37.3 % (41.0-53.0); Hemoglobin 12.9 g/dL (13.5-17.5); Mean Corpuscular Hemoglobin 31.9 pg (28.0-32.0); Mean Corpuscular Hgb Conc. 34.4 g/dL (32.0-36.0); Mean Corpuscular Volume 92.7 fL (80.0-100.0); Platelet Count (auto) 332 10^3/uL (140-450); Red Blood Cells 4.03 10^6/uL (4.5-5.90); Red Cell Distribution Width 13.6 % (11.8-14.3); White Blood Cell 11.3 10^3/uL (4.4-10.8)
[2025-03-10 04:15] LABS: Basophils % (manual) 0 (0.0-2.0); Blast Cells 0; Metamyelocytes % 0; Myelocytes % 0; Reactive Lymphocytes 0
[2025-03-10 04:20] LABS: Anion Gap 13 (5-15); Carbon Dioxide 26 mmol/L (20-31); Chloride 102 mmol/L (98-107); Sodium 141 mmol/L (136-145)
[2025-03-10 04:21] LABS: Calcium 10.2 mg/dL (8.7-10.4)
[2025-03-10 04:34] LABS: BUN/Creatinine Ratio 6.7 (10.0-20.0); Blood Urea Nitrogen < 5 mg/dL (9-23); Glucose 119 mg/dL (74-106)
[2025-03-10 05:08] LABS: Band Neutrophils % (manual) 2; Eosinophils % (manual) 2 (0-7); Lymphocytes % (manual) 19 (10.0-50.0); Monocytes % (manual) 12 (0-12); Platelet Estimate Adequate; Promyelocytes % 1
[2025-03-10] MEDS: cloNIDine HCL 0.1 MG TAB NG ONE (06:00)
[2025-03-10] MEDS: POTASSIUM CHL 20MEQ/100ML 100 ML IV SCH (06:30)
[2025-03-10] MEDS: LEVALBUTEROL HCL 1.25 MG/3 ML NEB NEB ONE (10:18)
[2025-03-10] MEDS: IPRATROPIUM BROM 0.5 MG/2.5ML INH SOL NEB ONE (10:18)
[2025-03-10] MEDS: methylPREDNISolone SOD SUCC 40 MG/ML VL IV ONE (10:31)
[2025-03-10] MEDS: FUROSEMIDE 40 MG/4 ML VIAL IV ONE (10:31)
[2025-03-10] MEDS: LEVALBUTEROL HCL 1.25 MG/3 ML NEB NEB SCH (11:54)
[2025-03-10] MEDS: IPRATROPIUM BROM 0.5 MG/2.5ML INH SOL NEB SCH (11:54)
[2025-03-10] MEDS: chlordiazePOXIDE HCL 25 MG CAP PO ONE (13:48)
[2025-03-10] MEDS: LORazepam 2MG/ML-1ML VIAL IV PRN (16:16)
[2025-03-10] MEDS: GABAPENTIN 100 MG CAP PO ONE (17:54)
[2025-03-10] MEDS: chlordiazePOXIDE HCL 25 MG CAP PO SCH (17:55)
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
--- NOTE | 2025-03-10 18:34 | DVHPN2 ---
Progress Note - Dictate Date Seen: March 10, 2025 Medical Necessity Reason Pt with a Central, PICC or Fol: Yes The following are medically ne: Central Line, Hernandez Catheter vital signs Vital Sign Date Time Temp Pulse Resp B/P (MAP) Pulse Ox O2 Delivery O2 Flow Rate FiO2 03/10/25 18:15 97.5 78 41 121/82 (95) 97 207.5 03/10/25 18:00 Nasal Cannula* 2 28 Total Intake and Output 03/09/25 03/09/25 03/10/25 15:00 23:00 07:00 Intake Total 24.088 ml 612.504 ml 691.005 ml Output Total 1350 ml 1450 ml Balance 24.088 ml -737.496 ml -758.995 ml medications Current Medications Medications Dose Ordered Sig/Sherman Route Start Time Stop Time Status Last Admin Dose Admin Ondansetron HCl 4 mg Q4HP PRN IV 03/03/25 17:00 Enoxaparin Sodium 40 mg DAILY SC 03/04/25 10:00 03/10/25 09:55 40 MG Pantoprazole Sodium 40 mg DAILY IV 03/04/25 10:00 03/10/25 09:55 40 MG Lorazepam 1 mg Q5MINP PRN IV 03/04/25 11:00 03/04/25 22:17 1 MG Levetiracetam 100 ml @ 400 mls/hr BID IV 03/05/25 10:00 03/10/25 09:55 400 MLS/HR Sodium Chloride 10 ml QSHIFT@10,22 IV 03/06/25 22:00 03/10/25 09:56 10 ML Enteral Nutritional Formula 1,000 ml 50ML/HR GT 03/07/25 16:45 03/07/25 20:54 1,000 ML Haloperidol Lactate 5 mg Q8HP PRN IV 03/09/25 20:15 Ipratropium [place] 0.5 mg Q6HR NEB 03/10/25 12:00 03/10/25 11:54 0.5 MG Levalbuterol HCl 1.25 mg Q6HR NEB 03/10/25 12:00 03/10/25 11:54 1.25 MG Chlordiazepoxide HCl 50 mg Q6HR PO 03/10/25 18:00 5/26/25 17:55 50 MG Lorazepam 2 mg Q1HP PRN IV 03/10/25 15:30 03/10/25 16:16 2 MG Gabapentin 100 mg TID PO 03/10/25 22:00 laboratory and microbiology Laboratory Tests 03/10/25 03:15 Test 03/10/25 03:15 Range/Units Serum Glucose 119 H 74-106 mg/dL Assessment/Plan Impression Acute hypoxemic respiratory failure Acute COPD exacerbation Pneumonia Atelectasis Patient seen and examined in ICU Events On mechanical ventilation S/p intubation PEEP 5, FiO2 30% Labs and imaging reviewed ABG reviewed Management Vent support Titrate to maintain sats 90% or above When patient is more awake, proceed to weaning trial Pressure support 04/19, extubate when ready Okay to use Precedex drip Continue antibiotics F/u cultures Bronchodilators Monitor renal function Monitor electrolytes Supplement as needed Pressors as needed for hemodynamic support To maintain a mean arterial pressure of 65 mmHg Continue Librium for withdrawals DVT prophylaxis Critical care time 35 minutes Dietary Evaluation Review Comments: 1. On Vent, TF Vital @50ml/hr providing 105g protein, 1200kcal, supporting pt's need on vent protein needs @ 109%, energy needs @75% 2. Off vent,TF Vital A.F.@50ml/hr,(90g protein, 1440 kcal, 973 free water) meeting pt's protein needs 94%, energy needs 90%, 3.CCHO-60g Cardiac Diet when pt is off vent and passing a ENTOMOLOGY PROFESSOR eval. Expected Outcomes/Goals: Improved health and mental status. Able to receive counseling anf rehab. Plan discussed with: Other (Rn) DEBO MCINTOSH MD March 10, 2025 18:34
[2025-03-10 20:55] LABS: Base Excess -1.5 mmol/L (-2.0-3.0)
[2025-03-10] MEDS: GABAPENTIN 100 MG CAP PO SCH (21:40)
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
[2025-03-11] VITALS (107 sets, daily range): BP systolic 78–153; BP diastolic 29–103; PULSE 78–119; RESP 12–51; TEMP 94.3–103.5; O2SAT 91–100
[2025-03-11 04:01] LABS: Basophils # (auto) 0 10 ^3/uL (0-0.2); Basophils % (auto) 0.2 % (0.0-2.0); Eosinophils # (auto) 0.1 10 ^3/uL (0-0.8); Eosinophils % (auto) 1.2 % (0.0-7.0); Hematocrit 39.5 % (41.0-53.0); Hemoglobin 13.8 g/dL (13.5-17.5); Lymphocytes % (auto) 17.5 % (10.0-50.0); Mean Corpuscular Hemoglobin 32.5 pg (28.0-32.0); Mean Corpuscular Volume 92.7 fL (80.0-100.0); Monocytes # (auto) 1.7 10 ^3/uL (0-1.3); Monocytes % (auto) 15.4 % (0.0-12.0); Neutrophils # (auto) 7.4 10 ^3/uL (1.6-8.6); Neutrophils % (auto) 65.7 % (37.0-80.0); Nucleated Red Blood Cells % 0.1 %; Platelet Count (auto) 351 10^3/uL (140-450); Red Blood Cells 4.26 10^6/uL (4.5-5.90); Red Cell Distribution Width 13.3 % (11.8-14.3); White Blood Cell 11.2 10^3/uL (4.4-10.8)
[2025-03-11 04:13] LABS: Chloride 102 mmol/L (98-107); Potassium 3.8 mmol/L (3.5-5.1); Sodium 139 mmol/L (136-145)
[2025-03-11 04:14] LABS: Anion Gap 10 (5-15); Carbon Dioxide 27 mmol/L (20-31)
[2025-03-11 04:19] LABS: BUN/Creatinine Ratio 10.4 (10.0-20.0)
[2025-03-11 04:34] LABS: Blood Urea Nitrogen 8 mg/dL (9-23); Calcium 10.5 mg/dL (8.7-10.4); Glucose 133 mg/dL (74-106)
[2025-03-11] MEDS ORDERED: VANCOMYCIN PER PHARMACY 0 MG IV SCH ×2 (08:30→12:30)
[2025-03-11] MEDS: ACETAMINOPHEN 325 MG TAB PO PRN ×2 (08:34→14:37)
[2025-03-11 09:27] LABS: Base Excess 3.9 mmol/L (-2.0-3.0)
[2025-03-11] MEDS: VANCOMYCIN 1.5GM/300ML 300 ML IV ONE (12:03)
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
--- NOTE | 2025-03-11 13:40 | ECG ---
Test Date: 2025-03-09 Test Time: 23:16:25 Pat Name: ANA MARÍA ALFONSO Department: ICU Room: 0265D Gender: M Equipment Inspector: Shanice : 1985 Requested By: DARON WALTER Order Number: [id number] Reading MD: Saurabh Fan Measurements Intervals [place] Rate: 109 P: 37 [place]: 166 QRS: 40 QRSD: 71 T: 21 QT: 342 QTc: 461 Interpretive Statements Sinus tachycardia Left atrial enlargement Borderline repol abnrm, anterolateral leads Electronically Signed On 03-16-2025 22:43:50 PDT by Saurabh Fan Please click the below link to view image of tracing.
[2025-03-11] MEDS: THIAMINE 100mg/ml INJ (200mg/2ml VIAL) IV ONE (13:56)
[2025-03-11] MEDS: D5W/LACTATED RINGERS 1,000 ML IV SCH (13:56)
[2025-03-11] MEDS: PIPERACILLIN-TAZOB 3.375GM 100 ML IV ONE (13:56)
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
[2025-03-11] MEDS: VANCOMYCIN 750mg/150ml 150 ML IV SCH (18:26)
[2025-03-11] MEDS: PIPERACILLIN-TAZOB 3.375GM 100 ML IV SCH (18:27)
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
[2025-03-12] VITALS (109 sets, daily range): BP systolic 85–180; BP diastolic 57–140; PULSE 89–127; RESP 17–41; TEMP 98.8–100.6; O2SAT 91–100
[2025-03-12 03:57] LABS: Basophils # (auto) 0.1 10 ^3/uL (0-0.2); Basophils % (auto) 0.5 % (0.0-2.0); Eosinophils # (auto) 0.3 10 ^3/uL (0-0.8); Eosinophils % (auto) 1.3 % (0.0-7.0); Hematocrit 38.6 % (41.0-53.0); Hemoglobin 13.1 g/dL (13.5-17.5); Lymphocytes # (auto) 2.2 10 ^3/uL (0.4-5.4); Lymphocytes % (auto) 10.9 % (10.0-50.0); Mean Corpuscular Hemoglobin 31.8 pg (28.0-32.0); Mean Corpuscular Volume 93.5 fL (80.0-100.0); Monocytes # (auto) 1.2 10 ^3/uL (0-1.3); Monocytes % (auto) 6.1 % (0.0-12.0); Neutrophils # (auto) 16.4 10 ^3/uL (1.6-8.6); Neutrophils % (auto) 81.2 % (37.0-80.0); Platelet Count (auto) 401 10^3/uL (140-450); Red Blood Cells 4.12 10^6/uL (4.5-5.90); Red Cell Distribution Width 13.6 % (11.8-14.3); White Blood Cell 20.2 10^3/uL (4.4-10.8)
[2025-03-12 04:05] LABS: Chloride 102 mmol/L (98-107); Sodium 139 mmol/L (136-145)
[2025-03-12 04:06] LABS: Anion Gap 13 (5-15); Carbon Dioxide 24 mmol/L (20-31)
[2025-03-12 04:11] LABS: BUN/Creatinine Ratio 10.5 (10.0-20.0)
[2025-03-12 04:25] LABS: Blood Urea Nitrogen 8 mg/dL (9-23); Calcium 8.7 mg/dL (8.7-10.4)
[2025-03-12 04:53] LABS: Glucose 403 mg/dL (74-106)
--- NOTE | 2025-03-12 05:08 | DVH ---
EXAM: XR Chest, 1 View CLINICAL INDICATION: Mechanical ventilation TECHNIQUE: Frontal view of the chest. COMPARISON: XY CHEST PORTABLE on DOS: 03/11/25, XY CHEST PORTABLE on DOS: 03/10/25, XY CHEST PORTABLE on DOS: 03/09/25, XY CHEST XRAY 1 VIEW on DOS: 03/08/25, XY CHEST PORTABLE on DOS: 03/08/25 FINDINGS: LUNGS AND PLEURAL SPACES: Pulmonary congestion and edema. Pneumonia cannot be excluded. No pneumot horax. HEART: Unremarkable. No cardiomegaly. MEDIASTINUM: Unremarkable. Normal mediastinal contour. BONES/JOINTS: Unremarkable. No acute fracture. TUBES, LINES AND DEVICES: Right peripherally inserted central catheter (PICC) tip in the superior v geneva cava. Enteric tube tip in the stomach. OTHER FINDINGS: . . . IMPRESSION: Pulmonary congestion and edema. Pneumonia cannot be excluded.
[2025-03-12 06:18] LABS: Basophils # (auto) 0.1 10 ^3/uL (0-0.2); Basophils % (auto) 0.6 % (0.0-2.0); Eosinophils # (auto) 0.3 10 ^3/uL (0-0.8); Eosinophils % (auto) 1.7 % (0.0-7.0); Hematocrit 38.4 % (41.0-53.0); Hemoglobin 13.3 g/dL (13.5-17.5); Lymphocytes # (auto) 2.2 10 ^3/uL (0.4-5.4); Lymphocytes % (auto) 11.7 % (10.0-50.0); Mean Corpuscular Hemoglobin 32.3 pg (28.0-32.0); Mean Corpuscular Hgb Conc. 34.6 g/dL (32.0-36.0); Mean Corpuscular Volume 93.3 fL (80.0-100.0); Monocytes # (auto) 1.3 10 ^3/uL (0-1.3); Monocytes % (auto) 6.9 % (0.0-12.0); Neutrophils # (auto) 14.7 10 ^3/uL (1.6-8.6); Neutrophils % (auto) 79.1 % (37.0-80.0); Platelet Count (auto) 412 10^3/uL (140-450); Red Blood Cells 4.12 10^6/uL (4.5-5.90); Red Cell Distribution Width 13.7 % (11.8-14.3); White Blood Cell 18.7 10^3/uL (4.4-10.8)
[2025-03-12 06:33] LABS: Chloride 103 mmol/L (98-107); Sodium 138 mmol/L (136-145)
[2025-03-12 06:34] LABS: Anion Gap 10 (5-15); Calcium 8.8 mg/dL (8.7-10.4); Carbon Dioxide 25 mmol/L (20-31)
[2025-03-12 06:39] LABS: BUN/Creatinine Ratio 9.9 (10.0-20.0)
[2025-03-12 06:48] LABS: Blood Urea Nitrogen 7 mg/dL (9-23); Glucose 199 mg/dL (74-106)
[2025-03-12] MEDS ORDERED: DEXTROSE (50%) 50ML SYRG IV PRN (09:45)
[2025-03-12] MEDS: THIAMINE 100mg/ml INJ (200mg/2ml VIAL) IV SCH (10:39)
--- NOTE | 2025-03-12 11:03 | ECG ---
[facility] Test Date: 2025-03-09 Test Time: 23:10:22 Pat Name: ANA MARÍA KADEN Department: ICU Room: 0265D Gender: M Delinquency Prevention Officer: Shanice : 1985 Requested By: QASIM QUINTANILLA Order Number: [id number] Reading MD: Saurabh Fan Measurements Intervals [place] Rate: 114 P: 43 VT: 185 QRS: 46 QRSD: 85 T: 3 QT: 292 QTc: 403 Interpretive Statements Sinus tachycardia Left atrial enlargement LVH with secondary repolarization abnormality Electronically Signed On 03-16-2025 22:43:45 PDT by Saurabh Fan Please click the below link to view image of tracing.
--- NOTE | 2025-03-12 11:03 | ECG ---
[facility] Test Date: 2025-03-09 Test Time: 13:05:32 Pat Name: ANA MARÍA KADEN Department: ICU Room: 0265D Gender: M Environmental Field Professional: DINO : 1985 Requested By: DIANE LUA Order Number: [id number] Reading MD: Saurabh Fan Measurements Intervals [place] Rate: 148 P: -5 NE: 130 QRS: 0 QRSD: 78 T: 188 QT: 262 QTc: 412 Interpretive Statements Sinus tachycardia LAE, consider biatrial enlargement Abnormal inferior Q waves Repol abnrm suggests ischemia, diffuse leads Electronically Signed On 03-16-2025 22:41:48 PDT by Saurabh Fan Please click the below link to view image of tracing.
[2025-03-12] MEDS: InsuLIN REG 1unit/0.01ml Soln (100units/ml) SC SCH (11:30)
[2025-03-12] MEDS: ACCU-CHEK COMFORT CURVE STRIP VI SCH (13:04)
[2025-03-12] MEDS: POTASSIUM CHL 20MEQ/100ML 100 ML IV SCH ×2 (13:13→18:15)
[2025-03-12] MEDS ORDERED: CLINIMIX PER PHARMACY 0 ML IV SCH (16:15)
[2025-03-12] MEDS: VANCOMYCIN 1.25GM/250ML 250 ML IV SCH (18:00)
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
[2025-03-12] MEDS: AMINO ACID INFUSION IN D10W 1,000 ML IV SCH (21:47)
[2025-03-13] VITALS (101 sets, daily range): BP systolic 116–175; BP diastolic 53–137; PULSE 93–131; RESP 15–40; TEMP 97–100.8; O2SAT 83–100
[2025-03-13 04:23] LABS: Chloride 105 mmol/L (98-107); Potassium 3.6 mmol/L (3.5-5.1); Sodium 141 mmol/L (136-145)
[2025-03-13 04:24] LABS: Anion Gap 14 (5-15); Carbon Dioxide 22 mmol/L (20-31)
[2025-03-13 04:25] LABS: Calcium 9.2 mg/dL (8.7-10.4)
[2025-03-13 04:32] LABS: Hematocrit 42.6 % (41.0-53.0); Hemoglobin 14.3 g/dL (13.5-17.5); Mean Corpuscular Hemoglobin 31.7 pg (28.0-32.0); Mean Corpuscular Hgb Conc. 33.6 g/dL (32.0-36.0); Mean Corpuscular Volume 94.3 fL (80.0-100.0); Platelet Count (auto) 446 10^3/uL (140-450); Red Blood Cells 4.52 10^6/uL (4.5-5.90); Red Cell Distribution Width 13.2 % (11.8-14.3)
[2025-03-13 04:34] LABS: Basophils % (manual) 0 (0.0-2.0); Blast Cells 0; Myelocytes % 0; Promyelocytes % 0; Reactive Lymphocytes 0
[2025-03-13 04:39] LABS: BUN/Creatinine Ratio 6.8 (10.0-20.0); Blood Urea Nitrogen < 5 mg/dL (9-23); Glucose 109 mg/dL (74-106)
[2025-03-13 05:18] LABS: Band Neutrophils % (manual) 1; Eosinophils % (manual) 2 (0-7); Lymphocytes % (manual) 12 (10.0-50.0); Metamyelocytes % 1; Monocytes % (manual) 1 (0-12)
[2025-03-13 05:19] LABS: Platelet Estimate Adequate
--- NOTE | 2025-03-13 05:37 | DVH ---
EXAM: XR Chest, 1 View CLINICAL INDICATION: Possible aspiration pneumonia TECHNIQUE: Frontal view of the chest. COMPARISON: XY CHEST PORTABLE on DOS: 03/12/25, XY CHEST PORTABLE on DOS: 03/11/25, XY CHEST PORTABLE on DOS: 03/10/25, XY CHEST PORTABLE on DOS: 03/09/25, XY CHEST XRAY 1 VIEW on DOS: 03/08/25 FINDINGS: LUNGS AND PLEURAL SPACES: Pulmonary congestion and edema. Pneumonia cannot be excluded. No pneumot horax. HEART: Unremarkable. No cardiomegaly. MEDIASTINUM: Unremarkable. Normal mediastinal contour. BONES/JOINTS: Unremarkable. No acute fracture. TUBES, LINES AND DEVICES: Right peripherally inserted central catheter (PICC) tip in the superior v geneva cava. Enteric tube tip in the stomach. OTHER FINDINGS: . . IMPRESSION: Pulmonary congestion and edema. Pneumonia cannot be excluded.
[2025-03-13] MEDS: LORazepam 2MG/ML-1ML VIAL IV PRN (09:29)
[2025-03-13] MEDS ORDERED: LABETALOL HCL 20 MG/4 ML VL IV PRN (10:30)
[2025-03-13] MEDS ORDERED: cloNIDine 0.1 mg/24hr 7 DAY PATCH TD SCH (12:15)
[2025-03-13] MEDS: cloNIDine 0.1 mg/24hr 7 DAY PATCH TD ONE ×2 (12:57)
[2025-03-13] MEDS: FUROSEMIDE 20 MG/2 ML VIAL IV ONE (12:57)
[2025-03-13] MEDS: D5W/LACTATED RINGERS 1,000 ML IV SCH (14:45)
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
[2025-03-13] MEDS: VANCOMYCIN 750mg/150ml 150 ML IV SCH (21:00)
[2025-03-14] VITALS (79 sets, daily range): BP systolic 97–157; BP diastolic 60–99; PULSE 88–109; RESP 12–34; TEMP 97.7–100.5; O2SAT 92–100
[2025-03-14 04:04] LABS: Basophils % (auto) 1.2 % (0.0-2.0); Eosinophils # (auto) 0.5 10 ^3/uL (0-0.8); Hemoglobin 13.3 g/dL (13.5-17.5); Mean Corpuscular Hgb Conc. 35.2 g/dL (32.0-36.0); Mean Corpuscular Volume 91.6 fL (80.0-100.0); Neutrophils # (auto) 8.8 10 ^3/uL (1.6-8.6); White Blood Cell 12.3 10^3/uL (4.4-10.8)
[2025-03-14 04:06] LABS: Basophils # (auto) 0.1 10 ^3/uL (0-0.2); Eosinophils % (auto) 4.1 % (0.0-7.0); Hematocrit 37.7 % (41.0-53.0); Lymphocytes # (auto) 2.2 10 ^3/uL (0.4-5.4); Lymphocytes % (auto) 18.1 % (10.0-50.0); Mean Corpuscular Hemoglobin 32.2 pg (28.0-32.0); Monocytes # (auto) 0.7 10 ^3/uL (0-1.3); Monocytes % (auto) 5.4 % (0.0-12.0); Neutrophils % (auto) 71.2 % (37.0-80.0); Platelet Count (auto) 488 10^3/uL (140-450); Red Blood Cells 4.11 10^6/uL (4.5-5.90); Red Cell Distribution Width 13.3 % (11.8-14.3)
[2025-03-14 04:45] LABS: Anion Gap 10 (5-15)
[2025-03-14 04:52] LABS: Sodium 141 mmol/L (136-145)
[2025-03-14 04:53] LABS: Alkaline Phosphatase 58 U/L (46-116); BUN/Creatinine Ratio 7.8 (10.0-20.0); Blood Urea Nitrogen < 5 mg/dL (9-23); Calcium 8.9 mg/dL (8.7-10.4); Carbon Dioxide 27 mmol/L (20-31); Chloride 104 mmol/L (98-107); Glucose 110 mg/dL (74-106)
[2025-03-14 04:54] LABS: Alanine Aminotransferase 24 U/L (7-40); Albumin 3.7 g/dL (3.2-4.8); Aspartate Aminotransferase 18 U/L (13-40); Bilirubin, Total 0.7 mg/dL (0.2-1.0); Phosphorus 2.6 mg/dL (2.4-5.1); Potassium 2.4 mmol/L (3.5-5.1); Total Protein 6.3 g/dL (5.7-8.2)
[2025-03-14 04:55] LABS: Magnesium 1.5 mg/dL (1.6-2.6)
[2025-03-14] MEDS: POTASSIUM CHL 20MEQ/100ML 100 ML IV SCH ×2 (05:15→16:54)
--- NOTE | 2025-03-14 05:54 | DVH ---
EXAM: XR Chest, 1 View CLINICAL INDICATION: aspiration pneumonia TECHNIQUE: Frontal view of the chest. COMPARISON: XY CHEST PORTABLE on DOS: 03/13/25, XY CHEST PORTABLE on DOS: 03/12/25, XY CHEST PORTABLE on DOS: 03/11/25, XY CHEST PORTABLE on DOS: 03/10/25, XY CHEST PORTABLE on DOS: 03/09/25 FINDINGS: LUNGS AND PLEURAL SPACES: Mild congestive heart failure. No consolidation. No pneumothorax. HEART: Unremarkable. No cardiomegaly. MEDIASTINUM: Unremarkable. Normal mediastinal contour. BONES/JOINTS: Unremarkable. No acute fracture. TUBES, LINES AND DEVICES: Right peripherally inserted central catheter (PICC) tip in the superior v geneva cava. Enteric tube tip in the stomach. OTHER FINDINGS: . IMPRESSION: Mild congestive heart failure.
[2025-03-14] MEDS: MAGNESIUM SULFATE 1GM/100ML 100 ML IV SCH (08:38)
[2025-03-14] MEDS ORDERED: POTASSIUM CHL 20MEQ/100ML 100 ML IV SCH ×2 (08:45→17:00)
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
[2025-03-14] MEDS ORDERED: VANCOMYCIN 1GM/200ML PM 200 ML IV SCH (21:00)
[2025-03-14] MEDS: VANCOMYCIN 1.25GM/250ML 250 ML IV SCH (22:52)
[2025-03-15] VITALS (92 sets, daily range): BP systolic 97–138; BP diastolic 55–94; PULSE 79–110; RESP 14–24; TEMP 99–100.4; O2SAT 91–100
[2025-03-15 01:44] LABS: Potassium 2.9 mmol/L (3.5-5.1)
[2025-03-15 01:50] LABS: Magnesium 1.8 mg/dL (1.6-2.6)
[2025-03-15 05:53] LABS: Basophils # (auto) 0.1 10 ^3/uL (0-0.2); Basophils % (auto) 0.9 % (0.0-2.0); Eosinophils # (auto) 0.7 10 ^3/uL (0-0.8); Eosinophils % (auto) 7.1 % (0.0-7.0); Hematocrit 35.1 % (41.0-53.0); Hemoglobin 11.9 g/dL (13.5-17.5); Lymphocytes # (auto) 1.9 10 ^3/uL (0.4-5.4); Lymphocytes % (auto) 20.2 % (10.0-50.0); Mean Corpuscular Hemoglobin 31.6 pg (28.0-32.0); Mean Corpuscular Hgb Conc. 33.9 g/dL (32.0-36.0); Mean Corpuscular Volume 93.3 fL (80.0-100.0); Monocytes # (auto) 0.5 10 ^3/uL (0-1.3); Monocytes % (auto) 5.2 % (0.0-12.0); Neutrophils # (auto) 6.4 10 ^3/uL (1.6-8.6); Neutrophils % (auto) 66.6 % (37.0-80.0); Nucleated Red Blood Cells % 0.1 %; Platelet Count (auto) 423 10^3/uL (140-450); Red Blood Cells 3.76 10^6/uL (4.5-5.90); Red Cell Distribution Width 13.2 % (11.8-14.3); White Blood Cell 9.5 10^3/uL (4.4-10.8)
[2025-03-15 06:02] LABS: Alanine Aminotransferase 18 U/L (7-40); Alkaline Phosphatase 51 U/L (46-116); Anion Gap 8 (5-15); Calcium 9.4 mg/dL (8.7-10.4); Carbon Dioxide 26 mmol/L (20-31); Magnesium 1.6 mg/dL (1.6-2.6); Sodium 143 mmol/L (136-145); Total Protein 5.9 g/dL (5.7-8.2)
[2025-03-15 06:03] LABS: Albumin 3.3 g/dL (3.2-4.8); Aspartate Aminotransferase 15 U/L (13-40); Bilirubin, Total 0.6 mg/dL (0.2-1.0)
[2025-03-15 06:05] LABS: BUN/Creatinine Ratio 6.6 (10.0-20.0); Blood Urea Nitrogen < 5 mg/dL (9-23); Chloride 109 mmol/L (98-107); Glucose 128 mg/dL (74-106); Potassium 2.9 mmol/L (3.5-5.1)
--- NOTE | 2025-03-15 08:39 | DVHPN2 ---
Progress Note - Dictate Date Seen: March 15, 2025 Medical Necessity Reason Pt with a Central, PICC or Fol: Yes The following are medically ne: Central Line, Hernandez Catheter vital signs Vital Sign Date Time Temp Pulse Resp B/P (MAP) Pulse Ox O2 Delivery O2 Flow Rate FiO2 03/15/25 08:00 99.7 93 18 211.5 03/15/25 07:45 96 03/15/25 06:29 Nasal Cannula* 1 24 Total Intake and Output 03/14/25 03/14/25 03/15/25 15:00 23:00 07:00 Intake Total 1535 ml 1478 ml 1383 ml Output Total 600 ml 1300 ml Balance 1535 ml 878 ml 83 ml medications Current Medications Medications Dose Ordered Sig/Sherman Route Start Time Stop Time Status Last Admin Dose Admin Ondansetron HCl 4 mg Q4HP PRN IV 03/03/25 17:00 Enoxaparin Sodium 40 mg DAILY SC 03/04/25 10:00 03/14/25 10:17 40 MG Pantoprazole Sodium 40 mg DAILY IV 03/04/25 10:00 03/14/25 10:16 40 MG Levetiracetam 100 ml @ 400 mls/hr BID IV 03/05/25 10:00 03/14/25 22:31 400 MLS/HR Sodium Chloride 10 ml QSHIFT@10,22 IV 03/06/25 22:00 03/14/25 22:53 10 ML Haloperidol Lactate 5 mg Q8HP PRN IV 03/09/25 20:15 Ipratropium [place] 0.5 mg Q6HR NEB 03/10/25 12:00 03/15/25 06:28 0.5 MG Levalbuterol HCl 1.25 mg Q6HR NEB 03/10/25 12:00 03/15/25 06:28 1.25 MG Gabapentin 100 mg TID PO 03/10/25 22:00 03/15/25 08:05 100 MG Vancomycin HCl 0 ml @ 0 mls/hr UD IV 03/11/25 08:30 UNV Acetaminophen 650 mg Q6HP PRN PO 03/11/25 09:30 03/15/25 00:58 650 MG Vancomycin HCl 0 ml @ 0 mls/hr UD IV 03/11/25 12:30 Piperacillin Sod/ Tazobactam Sod 100 ml @ 25 mls/hr Q6H IV 03/11/25 19:00 03/15/25 08:05 25 MLS/HR Thiamine HCl 100 mg DAILY IV 03/12/25 10:00 03/14/25 10:16 100 MG Diagnostic Test (Pha) 1 strip ACHS 03/12/25 11:30 03/15/25 07:00 1 STRIP Insulin Human Regular ACHS SC 03/12/25 11:30 03/14/25 12:56 2 UNITS Dextrose 50 ml UD PRN IV 03/12/25 09:45 Amino Acids 0 ml @ 0 mls/hr PER PHARMACY IV 03/12/25 16:15 Lorazepam 1 mg Q6HP PRN IV 03/12/25 16:15 03/15/25 00:57 1 MG Amino Acids/ Electrolytes/ Dextrose 1,000 ml @ 41 mls/hr DAILY@2200 IV 03/12/25 22:00 03/14/25 10:18 41 MLS/HR Labetalol HCl 5 mg Q2HPRN PRN IV 03/13/25 10:30 Dextrose/Lactated Ringer's 1,000 ml @ 60 mls/hr [id number] IV 03/13/25 12:00 03/15/25 04:03 60 MLS/HR Acetaminophen 650 mg Q6HP PRN GT 03/14/25 08:45 Potassium Chloride 100 ml @ 50 mls/hr Q2H IV 03/14/25 08:45 03/14/25 12:44 Cancel Vancomycin HCl 250 ml @ 200 mls/hr Q8H IV 03/14/25 21:00 03/15/25 05:26 200 MLS/HR laboratory and microbiology Laboratory Tests 03/15/25 05:30 Test 03/15/25 05:30 Range/Units Serum Glucose 128 H 74-106 mg/dL Assessment/Plan Impression Acute hypoxemic respiratory failure Acute COPD exacerbation Pneumonia Atelectasis Patient seen and examined in ICU Events On mechanical ventilation S/p extubation no fever NG in place Management 02 as needed swallow eval and diet Continue antibiotics F/u cultures Bronchodilators Monitor renal function Monitor electrolytes Supplement as needed watch for seizures watch for withdrawal DVT prophylaxis Critical care time 35 minutes Dietary Evaluation Review Comments: 1. On Vent, TF Vital @50ml/hr providing 105g protein, 1200kcal, supporting pt's need on vent protein needs @ 109%, energy needs @75% 2. Off vent,TF Vital A.F.@50ml/hr,(90g protein, 1440 kcal, 973 free water) meeting pt's protein needs 94%, energy needs 90%, 3.CCHO-60g Cardiac Diet when pt is off vent and passing a [employer] eval. Expected Outcomes/Goals: Improved health and mental status. Able to receive counseling anf rehab. Plan discussed with: Other (rn) DEBO MCINTOSH MD March 15, 2025 08:38
[2025-03-15] MEDS: HALOPERIDOL LACTATE 5 MG/ML INJ VIAL IV PRN (11:11)
[2025-03-15] MEDS ORDERED: DEXTROSE (50%) 50ML SYRG IV SCH (14:15)
[2025-03-15] MEDS ORDERED: POTASSIUM CHL 20MEQ/100ML 100 ML IV SCH (14:30)
[2025-03-15] MEDS: POTASSIUM CHL 20MEQ/100ML 100 ML IV SCH (14:45)
--- NOTE | 2025-03-15 15:38 | DVHPN2 ---
Subjective Patient denies any symptoms Reviewed: Care Plan, H&P, Labs, Medications, Previous Orders, Radiology Changes from previous H/P or p: No Changes Eyes: No Pain, No Vision change, No Conjunctivae inflammation, No Eyelid inflammation, No Other, No Redness ENT: No Ear pain, No Ear discharge, No Nose pain, No Nose discharge, No Nose congestion, No Mouth pain, No Mouth swelling, No Throat pain, No Throat swelling, No Other Respiratory: No Cough, No Dry, No Shortness of breath, No SOB with excertion, No Wheezing, No Hemoptysis, No Pleuritic Pain, No Sputum, No Other Gastrointestinal: No Nausea, No Vomiting, No Abdominal Pain, No Diarrhea, No Constipation, No Melena, No Hematochezia, No Other Genitourinary: No Dysuria, No Frequency, No Incontinence, No Hematuria, No Retention, No Other Musculoskeletal: No other, No neck pain, No shoulder pain, No arm pain, No back pain, No hand pain, No leg pain, No foot pain Skin: No Rash, No Lesions, No Jaundice, No Bruising, No Other Objective Vitals Vital Signs Date Time Temp Pulse Resp B/P (MAP) Pulse Ox O2 Delivery O2 Flow Rate FiO2 03/15/25 15:00 100.0 81 15 124/75 (91) 96 212.0 03/15/25 14:00 Nasal Cannula* 1 24 Intake/Output Intake and Output 03/15/25 06:59 Intake Total 4456 ml Output Total 1900 ml Balance 2556 ml Intake Oral 220 ml IV Total 4236 ml Output Urine Total 1900 ml # Bowel Movements 2 General Appearance: Other (Confused and agitated, hallucination visually) HEENT: PERRLA, Mucous membr. moist/pink Neck: Supple Lungs: Clear to auscultation, Normal air movement Cardiovascular: Regular rate, Normal S1, Normal S2, No murmurs, Gallops, Rubs Abdomen: Normal bowel sounds, Soft Neuro: Other (Confused and agitated) Psych/Mental Status: Other (Confused and agitated) Medications Current Medications Medications Dose Ordered Sig/Sherman Route Start Time Stop Time Status Last Admin Dose Admin Ondansetron HCl 4 mg Q4HP PRN IV 03/03/25 17:00 Pantoprazole Sodium 40 mg DAILY IV 03/04/25 10:00 03/15/25 09:45 40 MG Levetiracetam 100 ml @ 400 mls/hr BID IV 03/05/25 10:00 03/15/25 09:45 400 MLS/HR Sodium Chloride 10 ml QSHIFT@10,22 IV 03/06/25 22:00 03/15/25 09:45 10 ML Haloperidol Lactate 5 mg Q8HP PRN IV 03/09/25 20:15 03/15/25 11:11 5 MG Ipratropium [place] 0.5 mg Q6HR NEB 03/10/25 12:00 03/15/25 11:41 0.5 MG Levalbuterol HCl 1.25 mg Q6HR NEB 03/10/25 12:00 03/15/25 11:41 1.25 MG Gabapentin 100 mg TID PO 03/10/25 22:00 03/15/25 13:29 100 MG Vancomycin HCl 0 ml @ 0 mls/hr UD IV 03/11/25 08:30 UNV Acetaminophen 650 mg Q6HP PRN PO 03/11/25 09:30 03/15/25 00:58 650 MG Vancomycin HCl 0 ml @ 0 mls/hr UD IV 03/11/25 12:30 Piperacillin Sod/ Tazobactam Sod 100 ml @ 25 mls/hr Q6H IV 03/11/25 19:00 03/15/25 13:29 25 MLS/HR Thiamine HCl 100 mg DAILY IV 03/12/25 10:00 03/15/25 09:45 100 MG Amino Acids 0 ml @ 0 mls/hr PER PHARMACY IV 03/12/25 16:15 Lorazepam 1 mg Q6HP PRN IV 03/12/25 16:15 03/15/25 00:57 1 MG Amino Acids/ Electrolytes/ Dextrose 1,000 ml @ 41 mls/hr DAILY@2200 IV 03/12/25 22:00 03/14/25 10:18 41 MLS/HR Labetalol HCl 5 mg Q2HPRN PRN IV 03/13/25 10:30 Dextrose/Lactated Ringer's 1,000 ml @ 60 mls/hr [id number] IV 03/13/25 12:00 03/15/25 04:03 60 MLS/HR Acetaminophen 650 mg Q6HP PRN GT 03/14/25 08:45 Potassium Chloride 100 ml @ 50 mls/hr Q2H IV 03/14/25 08:45 03/14/25 12:44 Cancel Vancomycin HCl 250 ml @ 200 mls/hr Q8H IV 03/14/25 21:00 03/15/25 13:51 200 MLS/HR Diagnostic Test (Pha) 1 strip Q6HR 03/15/25 18:00 Insulin Human Regular FOLLOW SLIDING SCALE Q6HR SC 03/15/25 18:00 Dextrose 50 ml UD IV 03/15/25 14:15 Potassium Chloride 100 ml @ 50 mls/hr Q2H IV 03/15/25 14:30 03/15/25 18:29 Cancel Potassium Chloride 100 ml @ 50 mls/hr Q2H IV 03/15/25 14:45 03/15/25 22:44 03/15/25 15:02 50 MLS/HR Laboratory Results Laboratory Tests 03/15/25 05:30 Chemistry Test 03/15/25 00:45 03/15/25 05:30 Magnesium Level 1.8 mg/dL (1.6-2.6) 1.6 mg/dL (1.6-2.6) Albumin 3.3 g/dL (3.2-4.8) Calcium Level 9.4 mg/dL (8.7-10.4) Phosphorus Level 3.0 mg/dL (2.4-5.1) Total Protein 5.9 g/dL (5.7-8.2) LFT Test 03/15/25 05:30 Alanine Aminotransferase (ALT) 18 U/L (7-40) Alkaline Phosphatase 51 U/L (46-116) Aspartate Amino Transferase (AST) 15 U/L (13-40) Total Bilirubin 0.6 mg/dL (0.2-1.0) Urinalysis Test 03/03/25 16:00 Urine Color Light-orange (Yellow) Urine Clarity Clear (Clear) Urine pH 6.0 (5.0-9.0) Urine Specific [place] 1.033 (1.001-1.035) Urine Protein 1+ (Negative) H Urine Ketones 2+ (Negative) H Urine Blood Trace /uL (Negative) H Urine Nitrite Negative (Negative) Urine Bilirubin 1+ (Negative) Urine Urobilinogen 4 mg/dL (Negative) H Urine Leukocyte Esterase Negative /uL (Negative) Urine RBC 1 /hpf (0 - 3) Urine Microscopic WBC 1 /HPF (0-3) Urine Squamous Epithelial Cells None seen /hpf (<5) Urine Bacteria None seen /hpf (None Seen) Urine Hyaline Casts Few /lpf (0 - 2) Urine Mucus Few (None Seen) Urine Glucose Normal mg/dL (Normal) Microbiology Microbiology Date/Time Source Procedure Growth Status 03/11/25 12:00 Blood Blood Culture - Preliminary NO GROWTH AFTER 72 HOURS OF INCUBATION. Resulted 03/10/25 20:44 Sputum Gram Stain - Final Complete 03/10/25 20:44 Respiratory Culture - Final Citrobacter koseri Staphylococcus aureus Complete 03/09/25 22:10 Urine - [place] Urine Culture - Final Staphylococcus aureus Streptococcus Group B Complete 03/09/25 22:00 Scrotum Gram Stain - Final Complete 03/09/25 22:00 Wound Culture - Final Staphylococcus aureus Citrobacter koseri Streptococcus Group B Complete Labs and/or images reviewed: Labs reviewed by me, Image(s) reviewed by me Assessment/Plan Assessment/Plan Impression: -metabolic encephalopathy , toxic -alcoholism -acute hypoxic respiratory failure with mechanical ventilation, status post extubation -hypokalemia -questionable ileus -community-acquired pneumonia with Staphylococcus aureus -complicated cystitis with Staphylococcus aureus Plan: -swallow evaluation, pending -continue IV hydration -electrolyte replete -continue IV diuretics -continue TPN -continue antibiotic therapy with vancomycin and Zosyn -repeat labs in a.m. Critical care time spent with patient discussing and formulating plan of care: 40 minutes. This does not include time spent performing procedures. This medical document was created using an electronic medical record system with [employer] dictation system. Although this document has been carefully reviewed, there may still be some phonetic and typographical errors. These areas are purely typographical due to imperfections of the software programs, and do not reflect any compromise in the patient's medical care. Plan discussed with: Patient, Other (RN) Date of Service: March 15, 2025 Billing Provider: JUAN GILLETTE NP Common Visit Codes: 31271-[id number] CARE 30-74 MIN JUAN GILLETTE NP March 15, 2025 15:38
[2025-03-15] MEDS: InsuLIN REG 1unit/0.01ml Soln (100units/ml) SC SCH (18:00)
[2025-03-15] MEDS: ACCU-CHEK COMFORT CURVE STRIP VI SCH (18:04)
[2025-03-15] MEDS: ACETAMINOPHEN 650 mg PER 20.3 mL UD GT PRN (22:16)
[2025-03-16] VITALS (79 sets, daily range): BP systolic 112–143; BP diastolic 57–94; PULSE 76–94; RESP 10–31; TEMP 99.1–100.4; O2SAT 84–100
[2025-03-16 06:43] LABS: Basophils # (auto) 0 10 ^3/uL (0-0.2); Basophils % (auto) 0.6 % (0.0-2.0); Eosinophils # (auto) 0.8 10 ^3/uL (0-0.8); Eosinophils % (auto) 9.9 % (0.0-7.0); Hemoglobin 11.8 g/dL (13.5-17.5); Lymphocytes # (auto) 1.6 10 ^3/uL (0.4-5.4); Lymphocytes % (auto) 20.3 % (10.0-50.0); Mean Corpuscular Hemoglobin 32.2 pg (28.0-32.0); Mean Corpuscular Hgb Conc. 34.8 g/dL (32.0-36.0); Mean Corpuscular Volume 92.6 fL (80.0-100.0); Monocytes # (auto) 0.7 10 ^3/uL (0-1.3); Monocytes % (auto) 8.1 % (0.0-12.0); Neutrophils # (auto) 4.9 10 ^3/uL (1.6-8.6); Neutrophils % (auto) 61.1 % (37.0-80.0); Nucleated Red Blood Cells % 0.1 %; Platelet Count (auto) 520 10^3/uL (140-450); Red Blood Cells 3.67 10^6/uL (4.5-5.90); Red Cell Distribution Width 13.4 % (11.8-14.3)
[2025-03-16 07:03] LABS: Alanine Aminotransferase 16 U/L (7-40); Albumin 3.4 g/dL (3.2-4.8); Anion Gap 7 (5-15); Aspartate Aminotransferase 14 U/L (13-40); Calcium 9.4 mg/dL (8.7-10.4); Carbon Dioxide 26 mmol/L (20-31); Total Protein 5.9 g/dL (5.7-8.2); Triglycerides 149 mg/dL (< 150)
[2025-03-16 07:04] LABS: Alkaline Phosphatase 44 U/L (46-116); BUN/Creatinine Ratio 6.6 (10.0-20.0); Bilirubin, Total 0.5 mg/dL (0.2-1.0); Blood Urea Nitrogen < 5 mg/dL (9-23); Chloride 114 mmol/L (98-107); Glucose 107 mg/dL (74-106); Magnesium 1.5 mg/dL (1.6-2.6); Phosphorus 2.9 mg/dL (2.4-5.1); Potassium 2.9 mmol/L (3.5-5.1); Sodium 147 mmol/L (136-145)
[2025-03-16] MEDS: D5W/SOD CHL 0.9%/KCL 40MEQ 1,000 ML IV SCH (09:31)
[2025-03-16] MEDS: MAGNESIUM SULFATE 1GM/100ML 100 ML IV SCH (09:32)
[2025-03-16] MEDS: POTASSIUM CHL 20MEQ/100ML 100 ML IV SCH (10:18)
--- NOTE | 2025-03-16 12:07 | DVHPN2 ---
Progress Note - Dictate Date Seen: Mar 16, 2025 Medical Necessity Reason Pt with a Central, PICC or Fol: Yes The following are medically ne: Central Line, Hernandez Catheter vital signs Vital Sign Date Time Temp Pulse Resp B/P (MAP) Pulse Ox O2 Delivery O2 Flow Rate FiO2 03/16/25 10:30 99.7 82 16 136/88 (104) 98 211.5 03/16/25 10:00 Nasal Cannula 1.0 03/16/25 10:00 24 Total Intake and Output 03/15/25 03/15/25 03/16/25 15:00 23:00 07:00 Intake Total 1458 ml 1217 ml 1028 ml Output Total 2300 ml 1300 ml Balance 1458 ml -1083 ml -272 ml medications Current Medications Medications Dose Ordered Sig/Sherman Route Start Time Stop Time Status Last Admin Dose Admin Ondansetron HCl 4 mg Q4HP PRN IV 03/03/25 17:00 Pantoprazole Sodium 40 mg DAILY IV 03/04/25 10:00 03/16/25 09:33 40 MG Levetiracetam 100 ml @ 400 mls/hr BID IV 03/05/25 10:00 03/16/25 09:48 400 MLS/HR Sodium Chloride 10 ml QSHIFT@10,22 IV 03/06/25 22:00 03/16/25 09:33 10 ML Haloperidol Lactate 5 mg Q8HP PRN IV 03/09/25 20:15 03/15/25 11:11 5 MG Ipratropium [place] 0.5 mg Q6HR NEB 03/10/25 12:00 03/16/25 06:41 0.5 MG Levalbuterol HCl 1.25 mg Q6HR NEB 03/10/25 12:00 03/16/25 06:41 1.25 MG Gabapentin 100 mg TID PO 03/10/25 22:00 03/16/25 06:00 100 MG Vancomycin HCl 0 ml @ 0 mls/hr UD IV 03/11/25 08:30 UNV Vancomycin HCl 0 ml @ 0 mls/hr UD IV 03/11/25 12:30 Piperacillin Sod/ Tazobactam Sod 100 ml @ 25 mls/hr Q6H IV 03/11/25 19:00 03/16/25 07:45 25 MLS/HR Thiamine HCl 100 mg DAILY IV 03/12/25 10:00 03/16/25 09:33 100 MG Amino Acids 0 ml @ 0 mls/hr PER PHARMACY IV 03/12/25 16:15 Lorazepam 1 mg Q6HP PRN IV 03/12/25 16:15 03/16/25 00:15 1 MG Amino Acids/ Electrolytes/ Dextrose 1,000 ml @ 41 mls/hr DAILY@2200 IV 03/12/25 22:00 03/15/25 22:13 41 MLS/HR Labetalol HCl 5 mg Q2HPRN PRN IV 03/13/25 10:30 Acetaminophen 650 mg Q6HP PRN GT 03/14/25 08:45 03/15/25 22:16 650 MG Potassium Chloride 100 ml @ 50 mls/hr Q2H IV 03/14/25 08:45 03/14/25 12:44 Cancel Diagnostic Test (Pha) 1 strip Q6HR 03/15/25 18:00 03/16/25 11:51 1 STRIP Insulin Human Regular FOLLOW SLIDING SCALE Q6HR SC 03/15/25 18:00 03/16/25 11:51 2 UNITS Dextrose 50 ml UD IV 03/15/25 14:15 Potassium Chloride 100 ml @ 50 mls/hr Q2H IV 03/15/25 14:30 03/15/25 18:29 Cancel Potassium Chloride/Dextrose/ Sod Cl 1,000 ml @ 75 mls/hr [id number] IV 03/16/25 08:30 03/16/25 09:31 75 MLS/HR Potassium Chloride 100 ml @ 50 mls/hr Q2H IV 03/16/25 08:30 03/16/25 14:29 03/16/25 10:18 50 MLS/HR laboratory and microbiology Laboratory Tests 03/16/25 05:45 Test 03/16/25 05:45 Range/Units Serum Glucose 107 H 74-106 mg/dL Assessment/Plan Impression Acute hypoxemic respiratory failure Acute COPD exacerbation Pneumonia Atelectasis Patient seen and examined in ICU Events S/p extubation no fever NG in place Management 02 as needed swallow eval and diet Continue antibiotics F/u cultures Bronchodilators Monitor renal function Monitor electrolytes Supplement as needed DVT prophylaxis ok to d/grade Critical care time 35 minutes Dietary Evaluation Review Comments: 1. On Vent, TF Vital @50ml/hr providing 105g protein, 1200kcal, supporting pt's need on vent protein needs @ 109%, energy needs @75% 2. Off vent,TF Vital A.F.@50ml/hr,(90g protein, 1440 kcal, 973 free water) meeting pt's protein needs 94%, energy needs 90%, 3.CCHO-60g Cardiac Diet when pt is off vent and passing a CRISIS INTERVENTION COUNSELOR eval. Expected Outcomes/Goals: Improved health and mental status. Able to receive counseling anf rehab. Plan discussed with: Patient DEBO MCINTOSH MD Mar 16, 2025 12:07
--- NOTE | 2025-03-16 12:23 | DVHPN2 ---
Subjective Patient denies any symptoms Reviewed: Care Plan, H&P, Labs, Medications, Previous Orders, Radiology Changes from previous H/P or p: No Changes Eyes: No Pain, No Vision change, No Conjunctivae inflammation, No Eyelid inflammation, No Other, No Redness ENT: No Ear pain, No Ear discharge, No Nose pain, No Nose discharge, No Nose congestion, No Mouth pain, No Mouth swelling, No Throat pain, No Throat swelling, No Other Respiratory: No Cough, No Dry, No Shortness of breath, No SOB with excertion, No Wheezing, No Hemoptysis, No Pleuritic Pain, No Sputum, No Other Gastrointestinal: No Nausea, No Vomiting, No Abdominal Pain, No Diarrhea, No Constipation, No Melena, No Hematochezia, No Other Genitourinary: No Dysuria, No Frequency, No Incontinence, No Hematuria, No Retention, No Other Musculoskeletal: No other, No neck pain, No shoulder pain, No arm pain, No back pain, No hand pain, No leg pain, No foot pain Skin: No Rash, No Lesions, No Jaundice, No Bruising, No Other Objective Vitals Vital Signs Date Time Temp Pulse Resp B/P (MAP) Pulse Ox O2 Delivery O2 Flow Rate FiO2 03/16/25 10:30 99.7 82 16 136/88 (104) 98 211.5 03/16/25 10:00 Nasal Cannula 1.0 03/16/25 10:00 24 Intake/Output Intake and Output 03/16/25 07:00 Intake Total 3703 ml Output Total 3600 ml Balance 103 ml Intake Oral 120 ml IV Total 3583 ml Output Urine Total 3600 ml # Bowel Movements 1 General Appearance: Alert, Cooperative HEENT: PERRLA, Mucous membr. moist/pink Neck: Supple Lungs: Clear to auscultation, Normal air movement Cardiovascular: Regular rate, Normal S1, Normal S2, No murmurs, Gallops, Rubs Abdomen: Normal bowel sounds, Soft Neuro: Other (Confused and agitated) Skin: Dry, Intact Psych/Mental Status: Other (Confused and agitated) Medications Current Medications Medications Dose Ordered Sig/Sherman Route Start Time Stop Time Status Last Admin Dose Admin Ondansetron HCl 4 mg Q4HP PRN IV 03/03/25 17:00 Pantoprazole Sodium 40 mg DAILY IV 03/04/25 10:00 03/16/25 09:33 40 MG Levetiracetam 100 ml @ 400 mls/hr BID IV 03/05/25 10:00 03/16/25 09:48 400 MLS/HR Sodium Chloride 10 ml QSHIFT@10,22 IV 03/06/25 22:00 03/16/25 09:33 10 ML Haloperidol Lactate 5 mg Q8HP PRN IV 03/09/25 20:15 03/15/25 11:11 5 MG Ipratropium [place] 0.5 mg Q6HR NEB 03/10/25 12:00 03/16/25 06:41 0.5 MG Levalbuterol HCl 1.25 mg Q6HR NEB 03/10/25 12:00 03/16/25 06:41 1.25 MG Gabapentin 100 mg TID PO 03/10/25 22:00 03/16/25 06:00 100 MG Vancomycin HCl 0 ml @ 0 mls/hr UD IV 03/11/25 08:30 UNV Vancomycin HCl 0 ml @ 0 mls/hr UD IV 03/11/25 12:30 Piperacillin Sod/ Tazobactam Sod 100 ml @ 25 mls/hr Q6H IV 03/11/25 19:00 03/16/25 07:45 25 MLS/HR Thiamine HCl 100 mg DAILY IV 03/12/25 10:00 03/16/25 09:33 100 MG Amino Acids 0 ml @ 0 mls/hr PER PHARMACY IV 03/12/25 16:15 Lorazepam 1 mg Q6HP PRN IV 03/12/25 16:15 03/16/25 00:15 1 MG Amino Acids/ Electrolytes/ Dextrose 1,000 ml @ 41 mls/hr DAILY@2200 IV 03/12/25 22:00 03/15/25 22:13 41 MLS/HR Labetalol HCl 5 mg Q2HPRN PRN IV 03/13/25 10:30 Acetaminophen 650 mg Q6HP PRN GT 03/14/25 08:45 03/15/25 22:16 650 MG Potassium Chloride 100 ml @ 50 mls/hr Q2H IV 03/14/25 08:45 03/14/25 12:44 Cancel Diagnostic Test (Pha) 1 strip Q6HR 03/15/25 18:00 03/16/25 11:51 1 STRIP Insulin Human Regular FOLLOW SLIDING SCALE Q6HR SC 03/15/25 18:00 03/16/25 11:51 2 UNITS Dextrose 50 ml UD IV 03/15/25 14:15 Potassium Chloride 100 ml @ 50 mls/hr Q2H IV 03/15/25 14:30 03/15/25 18:29 Cancel Potassium Chloride/Dextrose/ Sod Cl 1,000 ml @ 75 mls/hr [id number] IV 03/16/25 08:30 03/16/25 09:31 75 MLS/HR Potassium Chloride 100 ml @ 50 mls/hr Q2H IV 03/16/25 08:30 03/16/25 14:29 03/16/25 12:17 50 MLS/HR Laboratory Results Laboratory Tests 03/16/25 05:45 Chemistry Test 03/16/25 05:45 Albumin 3.4 g/dL (3.2-4.8) Calcium Level 9.4 mg/dL (8.7-10.4) Magnesium Level 1.5 mg/dL (1.6-2.6) L Phosphorus Level 2.9 mg/dL (2.4-5.1) Total Protein 5.9 g/dL (5.7-8.2) Lipid panel Test 03/16/25 05:45 Triglycerides Level 149 mg/dL (< 150) LFT Test 03/16/25 05:45 Alanine Aminotransferase (ALT) 16 U/L (7-40) Alkaline Phosphatase 44 U/L (46-116) L Aspartate Amino Transferase (AST) 14 U/L (13-40) Total Bilirubin 0.5 mg/dL (0.2-1.0) Urinalysis Test 03/03/25 16:00 Urine Color Light-orange (Yellow) Urine Clarity Clear (Clear) Urine pH 6.0 (5.0-9.0) Urine Specific [place] 1.033 (1.001-1.035) Urine Protein 1+ (Negative) H Urine Ketones 2+ (Negative) H Urine Blood Trace /uL (Negative) H Urine Nitrite Negative (Negative) Urine Bilirubin 1+ (Negative) Urine Urobilinogen 4 mg/dL (Negative) H Urine Leukocyte Esterase Negative /uL (Negative) Urine RBC 1 /hpf (0 - 3) Urine Microscopic WBC 1 /HPF (0-3) Urine Squamous Epithelial Cells None seen /hpf (<5) Urine Bacteria None seen /hpf (None Seen) Urine Hyaline Casts Few /lpf (0 - 2) Urine Mucus Few (None Seen) Urine Glucose Normal mg/dL (Normal) Microbiology Microbiology Date/Time Source Procedure Growth Status 03/11/25 12:00 Blood Blood Culture - Final NO GROWTH AFTER 5 DAYS OF INCUBATION. Complete 03/10/25 20:44 Sputum Gram Stain - Final Complete 03/10/25 20:44 Respiratory Culture - Final Citrobacter koseri Staphylococcus aureus Complete 03/09/25 22:10 Urine - [place] Urine Culture - Final Staphylococcus aureus Streptococcus Group B Complete 03/09/25 22:00 Scrotum Gram Stain - Final Complete 03/09/25 22:00 Wound Culture - Final Staphylococcus aureus Citrobacter koseri Streptococcus Group B Complete Labs and/or images reviewed: Labs reviewed by me, Image(s) reviewed by me Assessment/Plan Assessment/Plan Impression: -metabolic encephalopathy , toxic -alcoholism -acute hypoxic respiratory failure with mechanical ventilation, status post extubation -hypokalemia -questionable ileus -community-acquired pneumonia with Staphylococcus aureus -complicated cystitis with Staphylococcus aureus Plan: Events: Patient has reported bowel movements. Continues to have NG tube to suction. Repeat KUB to assess for persistent ileus. Electrolyte replete. Patient stable thus far. -swallow evaluation, pending -continue IV hydration -electrolyte replete -continue IV diuretics -continue TPN -continue antibiotic therapy with vancomycin and Zosyn -repeat labs in a.m. -transfer to step-down ICU Critical care time spent with patient discussing and formulating plan of care: 40 minutes. This does not include time spent performing procedures. This medical document was created using an electronic medical record system with [employer]noo dictation system. Although this document has been carefully reviewed, there may still be some phonetic and typographical errors. These areas are purely typographical due to imperfections of the software programs, and do not reflect any compromise in the patient's medical care. Plan discussed with: Patient, Other (RN) My Orders Orders - JUAN GILLETTE POULTRY PICKER Procedure Category Date Status Time D5w/Sod Chl 0.9%/Kcl PHA 03/16/25 In Process 40meq 08:30 Potassium Chl PHA 03/16/25 In Process 20meq/100ml 08:30 Kub Abdomen Single XY 03/16/25 Logged View 10:54 Transfer Orders XFER 03/16/25 Transmitted 11:04 Date of Service: Mar 16, 2025 Billing Provider: JUAN GILLETTE NP Common Visit Codes: 80980-[id number] CARE 30-74 MIN JUAN GILLETTE NP Mar 16, 2025 12:23
--- NOTE | 2025-03-16 13:17 | CONS ---
Pharmacy Clinical Information: Patient is currently on D5NS with 40mEq KCL @75 mL/hr Na = 147, Cl = 114 Suggest changing to D5-1/2NS with 40mEq KCl @75 mL/hr PAVEL LAWRENCE PHARMACIST Mar 16, 2025 13:17
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
[2025-03-16] MEDS: VANCOMYCIN 1.25GM/250ML 250 ML IV SCH (17:39)
[2025-03-17] VITALS (60 sets, daily range): BP systolic 100–150; BP diastolic 55–95; PULSE 73–106; RESP 12–34; TEMP 99.1–100.2; O2SAT 93–100
[2025-03-17 05:58] LABS: Eosinophils # (auto) 1.1 10 ^3/uL (0-0.8); Lymphocytes # (auto) 1.9 10 ^3/uL (0.4-5.4); Monocytes # (auto) 0.7 10 ^3/uL (0-1.3); Neutrophils # (auto) 5.2 10 ^3/uL (1.6-8.6); Nucleated Red Blood Cells % 0.1 %
[2025-03-17 06:00] LABS: Basophils # (auto) 0.2 10 ^3/uL (0-0.2); Basophils % (auto) 1.7 % (0.0-2.0); Eosinophils % (auto) 12.2 % (0.0-7.0); Hematocrit 35.4 % (41.0-53.0); Hemoglobin 12.6 g/dL (13.5-17.5); Lymphocytes % (auto) 21.1 % (10.0-50.0); Mean Corpuscular Hgb Conc. 35.5 g/dL (32.0-36.0); Monocytes % (auto) 7.5 % (0.0-12.0); Neutrophils % (auto) 57.5 % (37.0-80.0); Platelet Count (auto) 705 10^3/uL (140-450); Red Blood Cells 3.81 10^6/uL (4.5-5.90); Red Cell Distribution Width 13.4 % (11.8-14.3)
[2025-03-17 06:02] LABS: Alanine Aminotransferase 13 U/L (7-40); Albumin 3.6 g/dL (3.2-4.8); Anion Gap 7 (5-15); Aspartate Aminotransferase 15 U/L (13-40); Bilirubin, Total 0.5 mg/dL (0.2-1.0); Calcium 9.6 mg/dL (8.7-10.4); Carbon Dioxide 26 mmol/L (20-31); Glucose 91 mg/dL (74-106); Magnesium 1.8 mg/dL (1.6-2.6); Potassium 3.8 mmol/L (3.5-5.1); Sodium 145 mmol/L (136-145); Total Protein 6.2 g/dL (5.7-8.2)
[2025-03-17 06:07] LABS: Alkaline Phosphatase 44 U/L (46-116); BUN/Creatinine Ratio 6.1 (10.0-20.0); Blood Urea Nitrogen < 5 mg/dL (9-23); Chloride 112 mmol/L (98-107)
--- NOTE | 2025-03-17 11:56 | MEDREC ---
FORMERLY [facility], [facility] Intervention Section I FORMERLY [facility], [facility] Intervention: Review courses of therapy (PLEASE CONSIDER DE-ESCALATION BASED ON CULTURE RESULTS ) CRISTIANE OZUNA PHARMACIST Mar 17, 2025 11:56
[2025-03-17] MEDS ORDERED: LORazepam 2MG/ML-1ML VIAL IV PRN (16:00)
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
[2025-03-18] VITALS (71 sets, daily range): BP systolic 102–132; BP diastolic 65–90; PULSE 79–110; RESP 11–31; TEMP 97.8–99.7; O2SAT 85–100
[2025-03-18 05:08] LABS: Basophils # (auto) 0.2 10 ^3/uL (0-0.2); Eosinophils # (auto) 1.1 10 ^3/uL (0-0.8); Mean Corpuscular Hemoglobin 32.2 pg (28.0-32.0)
[2025-03-18 05:13] LABS: Basophils % (auto) 1.6 % (0.0-2.0); Eosinophils % (auto) 11.1 % (0.0-7.0); Hematocrit 36.7 % (41.0-53.0); Hemoglobin 12.7 g/dL (13.5-17.5); Lymphocytes # (auto) 2.6 10 ^3/uL (0.4-5.4); Lymphocytes % (auto) 25.6 % (10.0-50.0); Mean Corpuscular Hgb Conc. 34.7 g/dL (32.0-36.0); Mean Corpuscular Volume 92.8 fL (80.0-100.0); Monocytes # (auto) 0.6 10 ^3/uL (0-1.3); Monocytes % (auto) 6.5 % (0.0-12.0); Neutrophils # (auto) 5.5 10 ^3/uL (1.6-8.6); Neutrophils % (auto) 55.2 % (37.0-80.0); Nucleated Red Blood Cells % 0.2 %; Platelet Count (auto) 703 10^3/uL (140-450); Red Blood Cells 3.96 10^6/uL (4.5-5.90); Red Cell Distribution Width 13.8 % (11.8-14.3)
[2025-03-18 05:22] LABS: Alanine Aminotransferase 13 U/L (7-40); Albumin 3.4 g/dL (3.2-4.8); Anion Gap 9 (5-15); Aspartate Aminotransferase 15 U/L (13-40); Bilirubin, Total 0.4 mg/dL (0.2-1.0); Calcium 9.1 mg/dL (8.7-10.4); Carbon Dioxide 24 mmol/L (20-31); Glucose 97 mg/dL (74-106); Phosphorus 3.5 mg/dL (2.4-5.1); Potassium 3.5 mmol/L (3.5-5.1); Sodium 143 mmol/L (136-145)
[2025-03-18 05:26] LABS: BUN/Creatinine Ratio 6.4 (10.0-20.0); Blood Urea Nitrogen < 5 mg/dL (9-23); Chloride 110 mmol/L (98-107)
[2025-03-18 05:27] LABS: Alkaline Phosphatase 41 U/L (46-116); Magnesium 1.4 mg/dL (1.6-2.6); Total Protein 5.6 g/dL (5.7-8.2)
[2025-03-18] MEDS: MAGNESIUM SULFATE 1GM/100ML 100 ML IV SCH (06:30)
[2025-03-18] MEDS: POTASSIUM EFFERVESENT TAB 25 MEQ PO ONE (06:30)
[2025-03-18] MEDS ORDERED: MAGNESIUM SULFATE 1GM/100ML 100 ML IV ONE (07:30)
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
[2025-03-18] MEDS: levoFLOXacin 500 MG TAB PO SCH (18:48)
[2025-03-19] VITALS (16 sets, daily range): BP systolic 114–126; BP diastolic 61–77; PULSE 64–102; RESP 14–100; TEMP 97.6–99.2; O2SAT 18–100
[2025-03-19] MEDS: PANTOPRAZOLE 40 MG TAB PO SCH (05:33)
[2025-03-19 09:04] LABS: Sodium 143 mmol/L (136-145)
[2025-03-19 09:05] LABS: Anion Gap 10 (5-15); Carbon Dioxide 23 mmol/L (20-31)
[2025-03-19 09:06] LABS: Calcium 9.3 mg/dL (8.7-10.4)
[2025-03-19 09:10] LABS: Glucose 94 mg/dL (74-106)
[2025-03-19 09:12] LABS: BUN/Creatinine Ratio 6.7 (10.0-20.0); Blood Urea Nitrogen < 5 mg/dL (9-23); Chloride 110 mmol/L (98-107); Potassium 3.2 mmol/L (3.5-5.1)
[2025-03-19] MEDS: POTASSIUM EFFERVESENT TAB 25 MEQ PO ONE (11:13)
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
[2025-03-19] MEDS ORDERED: LORazepam 2MG/ML-1ML VIAL IV PRN (21:15)
[2025-03-19] MEDS: PRIMIDONE 50 MG TAB PO ONE (21:27)
[2025-03-20] VITALS (16 sets, daily range): BP systolic 110–132; BP diastolic 72–86; PULSE 75–98; RESP 14–20; TEMP 97.2–98.7; O2SAT 94–100
[2025-03-20 05:26] LABS: Anion Gap 8 (5-15); Calcium 9.3 mg/dL (8.7-10.4); Carbon Dioxide 27 mmol/L (20-31); Sodium 144 mmol/L (136-145)
[2025-03-20 05:27] LABS: Chloride 109 mmol/L (98-107); Potassium 3.3 mmol/L (3.5-5.1)
[2025-03-20 05:31] LABS: Glucose 85 mg/dL (74-106)
[2025-03-20 05:34] LABS: Phosphorus 4.5 mg/dL (2.4-5.1)
[2025-03-20 05:40] LABS: BUN/Creatinine Ratio 6.2 (10.0-20.0); Blood Urea Nitrogen < 5 mg/dL (9-23); Magnesium 1.6 mg/dL (1.6-2.6)
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
[2025-03-20] MEDS: POTASSIUM EFFERVESENT TAB 25 MEQ PO ONE (10:01)
[2025-03-20] MEDS: MAGNESIUM OXIDE 400 MG TAB PO ONE (10:01)
[2025-03-20] MEDS ORDERED: cloNIDine 0.1 mg/24hr 7 DAY PATCH TD SCH (12:45)
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
[2025-03-20] MEDS: PRIMIDONE 50 MG TAB PO SCH (21:08)
--- NOTE | 2025-03-20 22:34 | DVHEEG2 ---
Neurology EEG Procedural Note Procedural Note EXAM DATE: 03/20/2025 REFERRING DOCTOR: Dr. Negron TECHNIQUE: Eighteen channels of EEG, 2 channels of EOG, and 1 channel of EKG were recorded using the International 10/20 system. CLINICAL DATA: The patient was referred for an EEG evaluation for the evidence of seizure disorder. MEDICATIONS: See the chart BACKGROUND ACTIVITY: There was some electrode artifacts in the recording. While the patient was awake, the background activity consisted of well regulated 9-10 Hz rhythmic waveforms, symmetrically distributed over both posterior quadrants and was reactive to eye opening. Intermixed with this was diffuse low amplitude rhythmic beta activity over both hemispheres ACTIVATION: Hyperventilation: Not done Photic Stimulation: Not done Sleep: Not seen IMPRESSION: This is a normal EEG. No focal, lateralized, or epileptiform features are noted. If clinically indicated to rule out a seizure disorder, recommend repeat EEG with sleep deprivation. The EKG channel showed a regular heart rate of 84 per minute [place] [address] RANI NEGRON MD Mar 20, 2025 22:34
[2025-03-21] VITALS (9 sets, daily range): BP systolic 116–144; BP diastolic 72–97; PULSE 72–93; RESP 16–18; TEMP 37.3; O2SAT 96–100
[2025-03-21 05:55] LABS: Basophils # (auto) 0.1 10 ^3/uL (0-0.2); Eosinophils # (auto) 0.7 10 ^3/uL (0-0.8); Lymphocytes # (auto) 1.8 10 ^3/uL (0.4-5.4); Monocytes # (auto) 0.7 10 ^3/uL (0-1.3); White Blood Cell 5.7 10^3/uL (4.4-10.8)
[2025-03-21 05:57] LABS: Basophils % (auto) 2.5 % (0.0-2.0); Eosinophils % (auto) 12.1 % (0.0-7.0); Hematocrit 36.8 % (41.0-53.0); Hemoglobin 12.8 g/dL (13.5-17.5); Lymphocytes % (auto) 31.5 % (10.0-50.0); Mean Corpuscular Hemoglobin 32.2 pg (28.0-32.0); Mean Corpuscular Hgb Conc. 34.8 g/dL (32.0-36.0); Mean Corpuscular Volume 92.5 fL (80.0-100.0); Monocytes % (auto) 12.2 % (0.0-12.0); Neutrophils # (auto) 2.4 10 ^3/uL (1.6-8.6); Neutrophils % (auto) 41.7 % (37.0-80.0); Nucleated Red Blood Cells % 0.2 %; Platelet Count (auto) 661 10^3/uL (140-450); Red Blood Cells 3.98 10^6/uL (4.5-5.90); Red Cell Distribution Width 14.1 % (11.8-14.3)
[2025-03-21 06:09] LABS: Anion Gap 9 (5-15); Carbon Dioxide 28 mmol/L (20-31); Chloride 105 mmol/L (98-107); Sodium 142 mmol/L (136-145)
[2025-03-21 06:10] LABS: Calcium 10.1 mg/dL (8.7-10.4)
[2025-03-21 06:15] LABS: Glucose 87 mg/dL (74-106); Potassium 3.1 mmol/L (3.5-5.1)
[2025-03-21 06:17] LABS: BUN/Creatinine Ratio 5.7 (10.0-20.0); Blood Urea Nitrogen < 5 mg/dL (9-23)
[2025-03-21] MEDS: POTASSIUM EFFERVESENT TAB 25 MEQ PO SCH (10:06)
[2025-03-21] MEDS: MAGNESIUM SULFATE 1GM/100ML 100 ML IV SCH (10:06)
[2025-03-21] MEDS ORDERED: LEVO750T40 PO (17:51)
[2025-03-21] MEDS ORDERED: POTA-36 PO (17:52)
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
== END 2025-03-21 12:30 | disposition home health service (06) | DRG 870 ==
LOC: ER 12:17 → OVERFLOW 16:58 → ICU WEST 03-04 02:50 → DOU IN ICU 03-16 22:15 → TELE-EAST 03-18 18:27 → EAST 03-19 15:35
PROVIDERS: ADMIT Internal Medicine Pulmonary Disease; ATTEND Internal Medicine Pulmonary Disease
PROC: 02HV33Z Insertion of Infusion Device into Superior Vena Cava, Percutaneous Approach (ICD-10-PCS; principal; 2025-03-03)
PROC: 5A1955Z Respiratory Ventilation, Greater than 96 Consecutive Hours (ICD-10-PCS; 2025-03-03)
PROC: 0BH17EZ Insertion of Endotracheal Airway into Trachea, Via Natural or Artificial Opening (ICD-10-PCS; 2025-03-03)
PROC: 02HV33Z Insertion of Infusion Device into Superior Vena Cava, Percutaneous Approach (ICD-10-PCS; 2025-03-06)
PROC: B548ZZA Ultrasonography of Superior Vena Cava, Guidance (ICD-10-PCS; 2025-03-06)
DX: A41.01 Sepsis due to Methicillin susceptible Staphylococcus aureus (principal); J96.01 Acute respiratory failure with hypoxia; G92.8 Other toxic encephalopathy; J15.211 Pneumonia due to Methicillin susceptible Staphylococcus aureus; J69.0 Pneumonitis due to inhalation of food and vomit; M62.82 Rhabdomyolysis; F10.231 Alcohol dependence with withdrawal delirium; K56.0 Paralytic ileus; J44.0 Chronic obstructive pulmonary disease with (acute) lower respiratory infection; J44.1 Chronic obstructive pulmonary disease with (acute) exacerbation; R74.01 Elevation of levels of liver transaminase levels; E87.6 Hypokalemia; E83.52 Hypercalcemia; N44.2 Benign cyst of testis; E86.0 Dehydration; N30.90 Cystitis, unspecified without hematuria; I11.9 Hypertensive heart disease without heart failure; E80.6 Other disorders of bilirubin metabolism; E83.42 Hypomagnesemia; L72.9 Follicular cyst of the skin and subcutaneous tissue, unspecified; G40.909 Epilepsy, unspecified, not intractable, without status epilepticus; Z82.49 Family history of ischemic heart disease and other diseases of the circulatory system; Z79.899 Other long term (current) drug therapy; Y90.0 Blood alcohol level of less than 20 mg/100 ml
CPT/HCPCS: 31500; 36415; 36556; 36569; 36600; 70450; 71045; 74018; 76700; 76937; 80048; 80053; 80074; 80202; 80320; 81001; 82140; 82550; 82607; 82746; 82805; 82962; 83605; 83735; 84100; 84132; 84443; 84478; 84484; 85007; 85025; 85027; 85610; 85730; 86703; 86780; 87040; 87070; 87077; 87081; 87086; 87088; 87186; 87205; 93005; 93306; 94002; 94003; 94640; 95819; 96361; 96372; 96374; 97110; 97116; 97163; 97530; 99291; 99292; A4565; G0378; J0131; J2250; J2470; J2543; J2704; J3480; J3490; J7060